=== PATIENT | female | born 1950 | race Caucasian/White ===

== ENCOUNTER 2016-10-08 11:12 | Inpatient (IN) | payer MEDICARE, BC ==
[~2016-10-08] VITALS: Ht 165.1 cm; Wt 67.1 kg
[2016-10-08] MEDS ORDERED: PROPOFOL 20 ML IV ONE (11:17)
[2016-10-08] MEDS ORDERED: IV NS 0.9% 1,000 ML ONE (11:17)
[2016-10-08] MEDS ORDERED: IV SET PRIMARY 1 EA INFUS.SET MC ONE (11:17)
--- NOTE | 2016-10-08 11:17 | NUR ---
PT BIB RA S/P GLF WITH VISIBLE DEFORMITY TO R ANKLE AND AIR SPLINT IN PLACE. R PEDAL PULSE PALPABLE AND CAP REFILL WNL BUT TOES ARE COOL TO THE TOUCH. C/O 7/10 PAIN S/P MORPHINE IV CUSTOMER CONTACT SPECIALIST. NO OTHER COMPLAINTS. RESP EVEN UNLABORED. IN ER BED 03.
[2016-10-08] MEDS ORDERED: HYDROMORPHONE 1 MG/1 ML DISP.SYRIN ONE ×2 (11:24→12:03)
[2016-10-08] MEDS ORDERED: ONDANSETRON HCL/PF 4 MG/2 ML VIAL ONE (11:29)
[2016-10-08] MEDS ORDERED: HYDROMORPHONE MDV 0.5 MG in IV D5W 50 ML IV PRN (11:30)
[2016-10-08] MEDS ORDERED: ONDANSETRON HCL/PF - ER 4 MG/2 ML VIAL IV ONE (11:30)
[2016-10-08] MEDS ORDERED: HYDROMORPHONE 1 MG/1 ML DISP.SYRIN IV ONE ×2 (11:30→12:30)
--- NOTE | 2016-10-08 11:46 | NUR ---
MODERATE SEDATION PROCEDURE STARTED AT 1136, REDUCTION AND SPLINTING COMPLETED AT 1141, AND PT RETURNED TO BASELINE FROM SEDATION AT 1146. DR MILLS ADMINISTERED 65MG PROPOFOL VIA LH 18G AT START OF PROCEDURE. XRAY AT BEDSIDE CURRENTLY FOR POST-REDUCTION FILMS. VSS, SATURATING WNL ON 3L VIA NC. FAMILY AT BEDSIDE.
--- NOTE | 2016-10-08 11:52 | NUR ---
ATTEMPTED TO CALL RESOLUTION REP FOR BED - RECEIVED NO RESPONSE
--- NOTE | 2016-10-08 11:54 | NUR ---
PAGED PHARMACEUTICAL PROCESS ENGINEER ORTHO DR KUMARI
--- NOTE | 2016-10-08 11:59 | NUR ---
PAGED CONSULTING SOLUTION DIRECTOR FOR [facility] DR JOSÉ WILLS
[2016-10-08] MEDS ORDERED: MAG HYDROX/AL HYDROX/SIMETH 30 ML UDC PO PRN (12:00)
[2016-10-08] MEDS ORDERED: PROPOFOL 200 MG/20 ML VIAL IV ONE (12:00)
[2016-10-08] MEDS ORDERED: MORPHINE SULFATE INJ 2 MG/ML DISP.SYRIN IV PRN (12:00)
[2016-10-08] MEDS ORDERED: ACETAMINOPHEN 325 MG TABLET PO PRN (12:00)
[2016-10-08] MEDS ORDERED: Z GUARD REMEDY 2 OZ OINT TP PRN (12:00)
--- NOTE | 2016-10-08 12:02 | NUR ---
TRIED AGAIN FOR NURSING RECOOPERER - NO RESPONSE
--- NOTE | 2016-10-08 12:08 | NUR ---
PATIENTS PRIMARY PHYSICIAN IS DR MARINE TURNER [phone]
--- NOTE | 2016-10-08 12:10 | NUR ---
TRIED REACHING NURSING SUP AGAIN FOR MED SURG BED
--- NOTE | 2016-10-08 12:14 | NUR ---
REACHED NURSING SUP WHO INFORMED ME THAT CHARGE NURSE IS CURRENTLY SPEAKING TO HER ABOUT BED ASSIGNMENT
[2016-10-08 12:16] LABS: BASOPHILS % (AUTO) 0.3 % (0.0-2.0); EOSINOPHILS # (AUTO) 0.1 /CMM (0.0-0.7); HEMATOCRIT 42 % (33-45); HEMOGLOBIN 13.7 g/dL (11.5-14.8); LYMPHOCYTES # (AUTO) 1.8 /CMM (0.8-4.8); LYMPHOCYTES % (AUTO) 17.4 % (20.0-44.0); MEAN CORPUSCULAR HEMOGLOBIN 26 PG (26.0-33.0); MEAN CORPUSCULAR HGB CONC 33 g/dl (31.0-36.0); MEAN CORPUSCULAR VOLUME 80 fL (82-100); MONOCYTES # (AUTO) 0.4 /CMM (0.1-1.30); NEUTROPHILS # (AUTO) 8.1 /CMM (1.8-8.9); NEUTROPHILS % (AUTO) 77.3 % (43.0-81.0); PLATELET COUNT (AUTO) 375 /CMM (150-450); RDW COEFFICIENT OF VARIATION 13.4 (11.5-15.0); RED BLOOD CELL COUNT(AUTO) 5.25 MIL/uL (4.0-5.2); WHITE BLOOD COUNT (AUTO) 10.4 K/uL (4.3-11.0)
[2016-10-08] MEDS ORDERED: ATOR20TA PO (12:20)
[2016-10-08] MEDS ORDERED: AMLO10TA4 PO (12:20)
[2016-10-08] MEDS ORDERED: SERT100T PO (12:20)
[2016-10-08] MEDS ORDERED: PANT40TA2 PO (12:20)
--- NOTE | 2016-10-08 12:23 | NUR ---
ROOM ASSIGNMENT 319, KEVIN ORTIZ
[2016-10-08 12:26] LABS: CREATININE 0.7 mg/dL (0.6-1.3); POTASSIUM 3.8 mmol/L (3.5-5.1)
--- NOTE | 2016-10-08 12:26 | NUR ---
REPAGED DR KUMAR CONFORMAL PAD FORMER FOR EPIC
[2016-10-08 12:31] LABS: INR 0.97 (0.87-1.13); PROTHROMBIN TIME 10.1 SECS (9.5-12.7)
--- NOTE | 2016-10-08 12:34 | NUR ---
REPORT GIVEN TO DIANA BROWN FOR ADMISSION
--- NOTE | 2016-10-08 12:36 | NUR ---
PT RESTING QUIETLY IN BED, NAD NOTED. VSS. ALL NEEDS ATTENDED TO.
--- NOTE | 2016-10-08 12:48 | NUR ---
REPAGED DR KUMAR AND MESSAGE WAS LEFT FOR HER BY PANEL
--- NOTE | 2016-10-08 12:58 | NUR ---
PAGED DR BONE FOR ADMISSION
--- NOTE | 2016-10-08 13:01 | NUR ---
DR MILLS ON THE PHONE WITH DR KUMAR
--- NOTE | 2016-10-08 13:40 | NUR ---
PT TRANSPORTED TO 319 IN STABLE CONDITION
--- NOTE | 2016-10-08 14:00 | NUR ---
MS DIECAST MACHINE OPERATOR 66 YEARS OLD FEMALE ADMITTED FROM HOME, BROUGHT IT FROM ER. DX OF ANKLE FRACTURE, PATIENT IS A/O X4. MADE COMFORTABLE IN BED, ON OXYGEN AT 2L/MIN VIA NC, NO SOB NOTED. RIGHT LEG WITH DRESSING, SPLINT IN PLACE. CALL LIGHT WITHIN REACH. WILL CONT TO MONITOR.
[2016-10-08 14:08] VITALS: BP 122/83
--- NOTE | 2016-10-08 14:30 | NUR ---
IV IN LEFT HAND G18. SKIN INTACT. PROVIDED PATIENT A BEDPAN, HAD BOWEL MOVEMENT TODAY, NO C/O CONSTIPATION.
--- NOTE | 2016-10-08 14:31 | NUR ---
PATIENT IS SEEN BY DR. JOSÉ VALDEZ TODAY, MD SPOKE TO THE PATIENT AND FAMILY. DR. KUMAR ORDERED TO CHANGE MORPHINE SULFATE 2MG IV TO Q2HR PRN, PLACE PATIENT ON CARDIAC DIET, PATIENT WILL BE NPO MIDNIGHT NOTED AND ACKNOWLEDGED.
[2016-10-08] MEDS ORDERED: IV SET PRIMARY PUMP SET 1 EA INFUS.SET MC ONE (15:13)
[2016-10-08] MEDS: SERTRALINE HCL 50 MG TABLET PO SCH (15:14)
[2016-10-08] MEDS: ATORVASTATIN 10 MG TABLET PO SCH (15:15)
[2016-10-08] MEDS: MORPHINE SULFATE INJ 2 MG/ML DISP.SYRIN IV PRN ×3 (15:19→20:47)
[2016-10-08] MEDS: IV D5/ 0.9% NACL 1,000 ML IV PRN (15:24)
--- NOTE | 2016-10-08 15:32 | NUR ---
ZOLOFT, LIPITOR NON ADMINISTERED, PATIENT STATED SHE TOOK IT THIS MORNING ALREADY.
[2016-10-08 16:00] VITALS: BP 131/79
--- NOTE | 2016-10-08 16:00 | NUR ---
DEMPSEY CATH INSERTED, URINE DRAINING FREELY. PATIENT TOLERATED WELL.
[2016-10-08] MEDS: HYDROCODONE/APAP 10/325MG 1 EA TABLET PO PRN (16:15)
--- NOTE | 2016-10-08 16:30 | NUR ---
left message for dr. Mckinney supervisor carbon paper coating line to conform surgery date and time.
--- NOTE | 2016-10-08 16:40 | NUR ---
received call form stating that he is not sure if he will be able to perform surgery tomorrow, however to keep pt npo from midnight and he will try to schedule pt for surgery for tomorrow afternoon, will inform pt and family.
--- NOTE | 2016-10-08 18:59 | NUR ---
MS RN CLOSING NOTES PATIENT IN BED, NOT IN DISTRESS. IV IN LEFT HAND G18 PATENT AND INTACT, IV D5 NS INFUSING AT 80ML/HR. PATIENT WILL BE NPO ORDERED FOR PROCEDURE SURGERY, AWAITING FOR DR. KUMARI FOR SCHEDULE PER SASCHA/RN. PATIENT WAS INFORMED. DEMPSEY CATH INTACT, DRAINING TO GRAVITY, URINE CLEAR AND YELLOW. CALL LIGHT WITHIN REACH. WILL ENDORSE TO REHABILITATION THERAPY TECHNICIAN RN FOR CONTINUITY OF CARE.
[2016-10-08 19:00] VITALS: BP 127/80
[2016-10-08] MEDS: HYDROCODONE/APAP 5/325MG 1 EACH TABLET PO PRN (19:19)
--- NOTE | 2016-10-08 19:20 | NUR ---
RN NOTE RECEIVED REPORT. PT AAOX4, NO S/S OF RESPIRATORY DISTRESS, 2L O2 NC. C/O OF PAIN IN RIGHT LEG, NORCO PRN JUST GIVEN. R LEG DRESSING INTACT WITH SPLINT. L HAND IV INTATCT AND PATENT TOLERATING FLUIDS WELL. NPO AT FL FOR POSSIBLE SURGERY IN AFTERNOON WITH DR KUMARI. CALL LIGHT IN REACH, WILL CONT TO MONITOR.
--- NOTE | 2016-10-08 19:20 | NUR ---
PATIENT C/O RIGHT ANKLE PAIN 5/10. GIVEN NORCO 5/325MG PO PRN, ENDORSED TO SOLAR PHOTOVOLTAIC ELECTRICIAN RN TO REASSESS.
--- NOTE | 2016-10-08 20:15 | NUR ---
RN NOTE DILAUDID PT C/O 10/10 IN IN RIGHT LEG, PREVIOUS PRN MORPHINE NOT EFFECTIVE. DR IRWIN AWARE, ORDERED PRN DILAUDID 1MG Q2HRS FOR PAIN. PER MD, OKAY TO GIVE FIRST DOSE NOW
[2016-10-08] MEDS: ENOXAPARIN SODIUM 40 MG/0.4 ML DISP.SYRIN SQ SCH (21:00)
[2016-10-08] MEDS ORDERED: ZOLPIDEM TARTRATE 5 MG TABLET PO PRN (22:00)
--- NOTE | 2016-10-08 22:29 | NUR ---
RN NOTE BP 133/86, 80. FIRST DOSE PRN DILAUDID GIVEN. WILL MONITOR FOR EFFECTIVENESS.
[2016-10-08] MEDS ORDERED: HYDROMORPHONE 1 MG/1 ML DISP.SYRIN IV PRN (22:30)
[2016-10-09] MEDS ORDERED: HYDROMORPHONE 1 MG/1 ML DISP.SYRIN ONE (02:09)
[2016-10-09] MEDS: ONDANSETRON HCL/PF 4 MG/2 ML VIAL IVP PRN (02:35)
[2016-10-09] MEDS: HYDROMORPHONE 1 MG/1 ML DISP.SYRIN IV PRN ×7 (03:31→20:14)
[2016-10-09] MEDS: IV D5/ 0.9% NACL 1,000 ML IV PRN ×2 (03:40→16:48)
--- NOTE | 2016-10-09 06:31 | NUR ---
RN NOTE NO SIGNIFICANT CHANGES THIS SHIFT. PAIN MANAGEMENT EFFECTIVE WITH PRN DILAUDID. NO C/O PAIN OR DISCOMFORT AT THIS TIME. ON MASK @ 6L, BREATHING NON-LABORED AND EVEN. SATTING AT 94%. L WRIST IV INTACT AND PATENT, TOLERATING FLUIDS WELL. NPO STATUS SINCE 0000, FOR POSSIBLE SURGERY WITH DR KUMARI TODAY. R FOOT DRESSING INTACT. ALL NEEDS ATTENDED TO, WILL F/U WITH DAY SHIFT FOR DARIUS.
[2016-10-09 06:46] LABS: BASOPHILS % (AUTO) 0.2 % (0.0-2.0); EOSINOPHILS % (AUTO) 0.3 % (0.0-6.0); HEMATOCRIT 39 % (33-45); HEMOGLOBIN 12.9 g/dL (11.5-14.8); LYMPHOCYTES # (AUTO) 1.9 /CMM (0.8-4.8); LYMPHOCYTES % (AUTO) 17.9 % (20.0-44.0); MEAN CORPUSCULAR HEMOGLOBIN 27 PG (26.0-33.0); MEAN CORPUSCULAR HGB CONC 33 g/dl (31.0-36.0); MEAN CORPUSCULAR VOLUME 81 fL (82-100); MONOCYTES # (AUTO) 0.6 /CMM (0.1-1.30); MONOCYTES % (AUTO) 5.9 % (2.0-12.0); NEUTROPHILS # (AUTO) 8.1 /CMM (1.8-8.9); NEUTROPHILS % (AUTO) 75.7 % (43.0-81.0); PLATELET COUNT (AUTO) 341 /CMM (150-450); RDW COEFFICIENT OF VARIATION 14.7 (11.5-15.0); RED BLOOD CELL COUNT(AUTO) 4.81 MIL/uL (4.0-5.2); WHITE BLOOD COUNT (AUTO) 10.7 K/uL (4.3-11.0)
[2016-10-09 07:04] LABS: CALCIUM, SERUM 8.9 mg/dL (8.5-10.1); CREATININE 0.6 mg/dL (0.6-1.3); MAGNESIUM 1.9 mg/dL (1.8-2.4); PHOSPHORUS 3.3 mg/dL (2.5-4.9); POTASSIUM 4.1 mmol/L (3.5-5.1)
--- NOTE | 2016-10-09 07:15 | NUR ---
MS RN NOTES RECEIVED PATIENT IN BED, AWAKE, A/O X4. ON OXYGEN AT 5L/MIN VIA NC, BREATHING NON LABORED. PER NIGHT RN PATIENT HAD EPISODE OF DECREASE O2 SAT LAST NIGHT AND WAS PLACE ON SIMPLE MASK AT 6L O2. PATIENT APPEARS COMFORTABLE IN BED, RIGHT LEG ELEVATED WITH PILLOW. PATIENT IS ON NPO STATUS ORDERED, POSSIBLE SURGERY TODAY BY DR. KUMARI. CALL LIGHT WITHIN REACH. WILL CONT TO MONITOR.
[2016-10-09] MEDS: PANTOPRAZOLE 40 MG TABLET.DR PO SCH (07:30)
[2016-10-09 07:49] LABS: THYROID STIMULATING HORMONE 1.236 uIU/mL (0.358-3.74)
[2016-10-09 08:00] VITALS: BP 124/81
[2016-10-09] MEDS ORDERED: PANTOPRAZOLE 40 MG TABLET.DR PO SCH (09:00)
[2016-10-09] MEDS: SERTRALINE HCL 50 MG TABLET PO SCH (09:00)
[2016-10-09] MEDS ORDERED: AMLODIPINE BESYLATE 10 MG TABLET PO SCH (09:00)
[2016-10-09] MEDS: ATORVASTATIN 10 MG TABLET PO SCH ×2 (09:00→22:09)
--- NOTE | 2016-10-09 09:12 | NUR ---
PATIENT IS SEEN BY DR. JOSÉ WILLS TODAY. AWAITING FOR SURGERY TODAY.
--- NOTE | 2016-10-09 13:41 | NUR ---
PATIENT IS SEEN BY TERESA/PA SPOKE TO THE PATIENT AND FAMILY MEMBER. PATIENT WILL BE NPO TONIGHT AFTER 11PM, FOR SURGERY-ORIF RIGHT ANKLE TOMORROW. CHARGE NURSE IS AWARE.
[2016-10-09] MEDS: HYDROCODONE/APAP 10/325MG 1 EA TABLET PO PRN ×3 (13:55→23:08)
[2016-10-09] MEDS: DOCUSATE SODIUM 250 MG CAPSULE PO SCH ×2 (14:58→21:00)
[2016-10-09] MEDS: AMLODIPINE BESYLATE 10 MG TABLET PO SCH (14:58)
[2016-10-09 16:00] VITALS: BP 138/78
[2016-10-09] MEDS ORDERED: DOCUSATE SODIUM 250 MG CAPSULE PO SCH (17:00)
--- NOTE | 2016-10-09 18:26 | NUR ---
MS RN CLOSING NOTES PATIENT IN BED, A/O X4. NOT IN DISTRESS. PER PATIENT HER PAIN LEVEL IS CONTROLLED. RIGHT LEG SPLINTED, ELEVATED WITH PILLOWS, WITH GOOD CIRCULATION IN RIGHT FOOT TOES. NWB IN RLE ORDERED. PATIENT WILL BE NPO AFTER 11PM TONIGHT, FOR ORIF RIGHT ANKLE BY DR. KUMARI IN AM. CONSENT SIGNED AND PLACE IN THE CHART. CALL LIGHT WITHIN REACH. WILL ENDORSE TO RING ATTACHER RN FOR CONTINUITY OF CARE.
--- NOTE | 2016-10-09 19:30 | NUR ---
MS/RN OPENING NOTES PT AWAKE, A/OX4, ACCOMPANIED BY FAMILY MEMBER. ON 6LPM O2 VIA NC. BREATHING EVEN AND UNLABORED. DENIES SOB. NO S/S OF DISTRESS NOTED. IV TO RIGHT HAND PATENT AND INTACT RUNNING D5NS @80ML/HR ORDERED. NO S/S OF INFILTRATION NOTED. PAIN 9/10 TO RIGHT ANKLE, BUT REQUESTING PAIN MEDICATION IN A LITTLE BIT. DEMPSEY IN PLACE, DRAINING WELL. RLE WRAPPED AND ELEVATED WITH PILLOWS. PT AWARE OF NPO STATUS POST 11PM TONIGHT FOR SURGERY TOMORROW MORNING WITH DR. KUMARI. CONSENTS SIGNED AND FLAGGED IN THE CHART. WILL UPDATE SURGICAL CHECKLIST. BED IN LOW/LOCKED POSITION, CALL LIGHT IN REACH. BED RAILS UPX2. WILL CONTINUE TO MONITOR
[2016-10-09 20:00] VITALS: BP 129/79
--- NOTE | 2016-10-09 20:23 | NUR ---
MS/RN NOTES PT REQUESTED MEDICATION FOR 9/10 RIGHT ANKLE PAIN. PRE-OXYGENATED PT WITH SIMPLE MASK AND INCREASED O2 TO 7LPM DUE TO HER O2 SAT BEING 90%. EH=951/79, HR=79. PT STATES SHE IS A LITTLE NERVOUS FOR PROCEDURE TOMORROW. ENCOURAGED PT TO TAKE SLOW CONTROLLED DEEP BREATHS AND LEAVE SIMPLE MASK ON FOR AT LEAST 45 MINUTES POST ADMINISTRATION OF IV DILAUDID. WILL CONTINUE TO MONITOR
[2016-10-09] MEDS: ENOXAPARIN SODIUM 40 MG/0.4 ML DISP.SYRIN SQ SCH (21:00)
[2016-10-10] MEDS: HYDROMORPHONE 1 MG/1 ML DISP.SYRIN IV PRN ×6 (01:44→21:05)
--- NOTE | 2016-10-10 05:30 | NUR ---
MS/RN NOTES CALLED DR. JI'S OFFICE TO INFORM HIM OF PT'S CONDITION AND THAT DR. IRWIN POSTPONED THE SCHEDULED [address] JI SAID HE WOULD INFORM DR. KUMARI. BEER BREWER LEMUEL NOTIFIED AND RELAYED INFORMATION TO NURSING SENSOR TECHNICIAN. FAMILY NOTIFIED WELL.
[2016-10-10] MEDS: IV D5/ 0.9% NACL 1,000 ML IV PRN (05:31)
--- NOTE | 2016-10-10 05:35 | NUR ---
MS/RN NOTES AM VITALS TAKEN PRIOR TO SURGERY. O2 SAT NOTED TO BE 85%. INCREASED O2 TO 10LPM VIA SIMPLE MASK. PT NOTED TO BE A LITTLE ANXIOUS AND SOB AT THIS TIME. ENCOURAGED PT TO TAKE SLOW DEEP BREATHS. WORKERS COMPENSATION CLAIMS ADJUSTER LEMUEL NOTIFIED. SPOKE TO DR IRWIN AND ORDERED STAT ABG, CHEST XRAY, 40MG LASIX IV ONCE AND HOLD FLUIDS. WILL ENTER AND CARRY OUT ORDERS APPROPRIATELY.
[2016-10-10] MEDS ORDERED: FUROSEMIDE 40 MG/4 ML VIAL ONE (05:55)
[2016-10-10] MEDS ORDERED: FUROSEMIDE 40 MG/4 ML VIAL IV SCH (06:00)
[2016-10-10] MEDS ORDERED: FUROSEMIDE 40 MG/4 ML VIAL IV ONE (06:00)
--- NOTE | 2016-10-10 07:30 | NUR ---
MS/RN CLOSING NOTES PT AWAKE, A/OX3, ON 10LPM SIMPLE MASK, SATTING 90-92%. STAT CXR, ABG AND ONE TIME DOSE OF LASIX 40MG ADMINISTERED. IV TO RIGHT HAND PATENT AND INTACT. IVF STOPPED PER MD IRWIN ORDER. PT COMPLAINING OF PAIN TO HER RIGHT ANKLE. SCHEDULED ORIF SURGERY POSTPONED. BREATHING IS EVEN AND UNLABORED AT THIS TIME. DENIES ANXIETY OR SOB. FAMILY MENTIONED THAT SHE MAY HAVE SLEEP APNEA (NOT DIAGNOSED) AND HAS HAD A PREVIOUS EXPERIENCE WHERE SHE HAD A DIFFICULT TIME WAKING UP FROM SURGERY. BED IN LOW/LOCKED POSITION, CALL LIGHT IN REACH. BED RAILS UPX2. FAMILY REMAINS AT BEDSIDE. ENDORSED TO AM SHIFT DARIUS.
[2016-10-10 07:47] LABS: ABG OXYGEN SATURATION 89.2 % (92.0-98.5); ABG PCO2 49.2 mmHg (35.0-45.0); ABG PH 7.436 (7.350-7.450); ABG PO2 52.7 mmHg (75.0-100.0); ABG TOTAL HEMOGLOBIN 13.1 G/dL (12.0-16.0); AaDO2 212.2 mmHg; COHb 1.2 % (0.5-1.5); MetHb 0.5 % (0.0-1.5); O2Hb 87.7 % (94.0-97.0); SITE, ABG Right Brachial; VENT MODE, BG SIMPLE MASK
[2016-10-10 08:00] VITALS: BP_SYST 111; BP_SYST 112; BP_DIAS 71
--- NOTE | 2016-10-10 08:00 | NUR ---
MS RN NOTE PT AWAKE, ALERT AND ORIENTED X4. COMPLAINTS OF RT ANKLE PAIN AND SOB. PT. HAD O2@10L VIA MASK. ABG DONE. AWAITING A RESULTS. CALL LIGHT WITHIN REACH. SIDE RAILS UP. MONITOR CLOSELY.
[2016-10-10 08:02] LABS: BASOPHILS % (AUTO) 0.3 % (0.0-2.0); EOSINOPHILS # (AUTO) 0.1 /CMM (0.0-0.7); EOSINOPHILS % (AUTO) 0.7 % (0.0-6.0); HEMATOCRIT 39 % (33-45); HEMOGLOBIN 12.6 g/dL (11.5-14.8); LYMPHOCYTES # (AUTO) 1.5 /CMM (0.8-4.8); LYMPHOCYTES % (AUTO) 13.5 % (20.0-44.0); MEAN CORPUSCULAR HEMOGLOBIN 26 PG (26.0-33.0); MEAN CORPUSCULAR HGB CONC 32 g/dl (31.0-36.0); MEAN CORPUSCULAR VOLUME 81 fL (82-100); MONOCYTES # (AUTO) 0.4 /CMM (0.1-1.30); MONOCYTES % (AUTO) 3.7 % (2.0-12.0); NEUTROPHILS # (AUTO) 8.8 /CMM (1.8-8.9); NEUTROPHILS % (AUTO) 81.8 % (43.0-81.0); PLATELET COUNT (AUTO) 335 /CMM (150-450); RDW COEFFICIENT OF VARIATION 14.7 (11.5-15.0); RED BLOOD CELL COUNT(AUTO) 4.78 MIL/uL (4.0-5.2); WHITE BLOOD COUNT (AUTO) 10.8 K/uL (4.3-11.0)
[2016-10-10 08:23] LABS: CALCIUM, SERUM 9.1 mg/dL (8.5-10.1); CREATININE 0.7 mg/dL (0.6-1.3); MAGNESIUM 1.8 mg/dL (1.8-2.4); PHOSPHORUS 2.3 mg/dL (2.5-4.9); POTASSIUM 3.6 mmol/L (3.5-5.1)
--- NOTE | 2016-10-10 08:30 | NUR ---
CHANGED TO NON-REBREATHING MASK. SAO2 @93~96%. NOTIFIED ABG RESULTS TO SARAH BANGURA. CHARGE NURSE PRASANNA SPOKE WITH FAMILY AT THE BEDSIDE.
[2016-10-10] MEDS ORDERED: IOHEXOL-350 100 ML VIAL IV ONE (08:58)
[2016-10-10] MEDS ORDERED: CT SWABBABLE VALVE TRANS SET 1 EA INFUS.SET MC ONE (08:58)
[2016-10-10] MEDS ORDERED: IV NS 0.9% 0 ML IV ONE (08:58)
[2016-10-10] MEDS ORDERED: ALBUTEROL FS 2.5 MG/0.5 ML VIAL.NEB NEB PRN (09:30)
[2016-10-10] MEDS ORDERED: IPRATROPIUM NEB FS 0.5 MG/2.5 ML AMPUL.NEB NEB PRN (09:30)
--- NOTE | 2016-10-10 09:30 | NUR ---
SARAH BANGURA AT THE BEDSIDE. ASSESSED PT AND SPOKE WITH FAMILY. WILL TAKE CT CHEST.
[2016-10-10] MEDS: HYDROCODONE/APAP 10/325MG 1 EA TABLET PO PRN ×2 (10:20→16:58)
--- NOTE | 2016-10-10 11:00 | NUR ---
TOOK AN ECHO AND LLE VENOUS US DONE AT THE BEDSIDE.
[2016-10-10] MEDS ORDERED: SECONDARY IV SET 1 EA INFUS.SET MC ONE (11:07)
[2016-10-10] MEDS: SERTRALINE HCL 50 MG TABLET PO SCH (11:32)
[2016-10-10] MEDS: DOCUSATE SODIUM 250 MG CAPSULE PO SCH ×2 (11:33→16:57)
[2016-10-10] MEDS: PANTOPRAZOLE 40 MG TABLET.DR PO SCH (11:33)
[2016-10-10] MEDS: AMLODIPINE BESYLATE 10 MG TABLET PO SCH (11:33)
[2016-10-10] MEDS: CEFTRIAXONE 1 G in IV D5W 50 ML IV SCH (11:49)
[2016-10-10] MEDS ORDERED: LEVOFLOXACIN 750 MG /D5W 150ML 750 MG in PREMIX 1 EA IV SCH (12:00)
--- NOTE | 2016-10-10 12:00 | NUR ---
STARTED ROCEPHIN VIPB. CHANGED TO SIMPLE MASK @ 10 L. SaO2 90~93%. MORE COMFORTABLE NOW. MONITOR CLOSELY.
--- NOTE | 2016-10-10 12:00 | NUR ---
DR. PERES AT THE BEDSIDE. SPOKE WITH FAMILY AND PT.
[2016-10-10] MEDS: CELECOXIB 100 MG CAPSULE PO SCH ×2 (12:30→21:00)
[2016-10-10] MEDS: ACETAMINOPHEN 325 MG TABLET PO SCH ×2 (12:45→17:33)
[2016-10-10] MEDS: GUAIFENESIN LA 600 MG TABLET.SA PO SCH ×2 (15:00→21:00)
[2016-10-10 16:00] VITALS: BP 131/78
[2016-10-10] MEDS ORDERED: K PHOS NEUTRAL 250 MG TABLET PO ONE (16:30)
--- NOTE | 2016-10-10 18:41 | NUR ---
CLOSING SHIFT PT. AWAKE, ALERT AND ORIENTED X4. RT ANKLE PAIN HAS BEEN CONTROLLED BY PAIN MEDS. SAO2 90~96% ON NRB MASK. ENCOURAGED INCENTIVE SPIROMETER AND DEEP BREATHING. VS STABLE. RT DORSAL PULSE IS STRONG. ELEVATED RT LEG. POOR INTAKE. D5NS@80ML/HR IVF. DEMPSEY CATH IN PLACED. EXPLAINED ALL TREATMENT TO DECREASE ANXIOUS. CALL LIGHT WITHIN REACH. SIDE RAILS UP. MONITOR CLOSELY.
--- NOTE | 2016-10-10 19:30 | NUR ---
RN NOTE; RECEIVED PT AWAKE AND ALERT IN BED. SOME HOW ANXIOUS AND RESTLESS. ON REBREATHER MASK W/ O2 @15LPM W/ O2 SAT 86-92%. NO C/O SOB. NO COUGH. DRESSING AND SPLINT ON L FOOT INTACT AND IN PLACE. ASSISTED W/ REPOSITIONING. BED LOW LOCKED. SRX2. CALL LIGHT WITHIN REACH. WILL CONT TO MONITOR
[2016-10-10] MEDS: IPRATROPIUM NEB FS 0.5 MG/2.5 ML AMPUL.NEB NEB SCH (19:59)
[2016-10-10 20:00] VITALS: BP 123/70
[2016-10-10] MEDS: ALBUTEROL FS 2.5 MG/0.5 ML VIAL.NEB NEB SCH ×2 (20:00→21:30)
[2016-10-10] MEDS: ATORVASTATIN 10 MG TABLET PO SCH (21:04)
[2016-10-10] MEDS: ENOXAPARIN SODIUM 40 MG/0.4 ML DISP.SYRIN SQ SCH (21:12)
--- NOTE | 2016-10-10 21:15 | NUR ---
DILAUDID GIVEN FOR C/O SEVERE R FOOT PAIN. PT REFUSED MUCINEX AND CELECOXIB. REMAINED ON O2 AT 15LPM VIA NON REBREATHER MASK AND CONTINUOUS O2 SAT MONITORING. WILL CONT TO MONITOR
--- NOTE | 2016-10-10 23:44 | NUR ---
ON ONGOING MONITORING FOR O2 SAT . W/ O2 SAT OF 89-92% . BREATHING TX GIVEN BY RT. WILL CONT TO MONITOR
[2016-10-11] VITALS (17 sets, daily range): BP systolic 91–139; BP diastolic 42–117
[2016-10-11] MEDS: HYDROCODONE/APAP 10/325MG 1 EA TABLET PO PRN ×3 (01:19→16:25)
--- NOTE | 2016-10-11 01:21 | NUR ---
NORCO 10/325 GIVEN ORDERED PER PT'S REQUEST FOR C/O R FOOT PAIN. WILL CONT TO MONITOR
[2016-10-11] MEDS: TEMAZEPAM 7.5 MG CAPSULE PO PRN (01:50)
--- NOTE | 2016-10-11 01:53 | NUR ---
RESTORIL GIVEN FOR INABILITY TO FALL SLEEP. PT REMAINED ON CONTINUOUS O2 SAT MONITORING W/ O2 SAT OF 90-92% . WILL CONT TO MONITOR CLOSELY.
[2016-10-11] MEDS: ALBUTEROL FS 2.5 MG/0.5 ML VIAL.NEB NEB SCH ×4 (03:30→21:12)
[2016-10-11] MEDS: IPRATROPIUM NEB FS 0.5 MG/2.5 ML AMPUL.NEB NEB SCH ×5 (03:30→21:12)
[2016-10-11] MEDS: HYDROMORPHONE 1 MG/1 ML DISP.SYRIN IV PRN ×6 (05:58→21:19)
[2016-10-11] MEDS: ACETAMINOPHEN 325 MG TABLET PO SCH ×3 (06:00→12:00)
--- NOTE | 2016-10-11 06:00 | NUR ---
DILAUDID GIVEN PER PT'S REQUEST FOR C/O SEVERE T FOOT PAIN. WILL CONT TO MONITOR
--- NOTE | 2016-10-11 06:25 | NUR ---
CALLED RT FOR MISSED BREATHING DOSE OF BREATHING TX. PER RT SOME ONE WILL BE HERE WITH THE PT .
--- NOTE | 2016-10-11 06:34 | NUR ---
SPOKE TO DR. REYNA OVER THE PHONE AND RELAYED PT'S RESPIRATORY CONDITION W/ NNO AT THIS TIME . AND TO CONT MONITORING PT CLOSELY.
--- NOTE | 2016-10-11 06:50 | NUR ---
RN NOTE; PT IN BED DOZING INTERMITTENTLY. BREATHING VIA NON REBREATHER MASK ON 15LPM. O2 SAT REMAINED 89-92%. W/ EPISODES OF COUGH. F/C IN PLACE. DRAINING CLEAR YELLOW URINE. NO C/O PAIN AT THIS TIME. DRESSING AND SPLINT IN PLACE ON R ANKLE. NEEDS ATTENDED. BED BATH GIVEN. CALL LIGHT WITHIN REACH. WILL CONT TO MONITOR AND WILL ENDORSE TO AM SHIFT FOR DARIUS.
--- NOTE | 2016-10-11 07:00 | NUR ---
MS RN INITIAL NOTES REPORT RECEIVED AT THE BEDSIDE. PATIENT IS RESTING COMFORTABLY IN BED. NO SOB OR DISTRESS NOTED AT THIS TIME. PATIENT IS ON A NONREBREATHER MASK AT 15L. O2 SAT IS 91%. PATIENT REPORTS TOLERABLE PAIN AT THIS TIME. BED IN A LOW POSITION, CALL LIGHT WITHIN PATIENT REACH. WILL CONTINUE TO MONITOR.
[2016-10-11 07:22] LABS: CALCIUM, SERUM 8.7 mg/dL (8.5-10.1); CREATININE 0.5 mg/dL (0.6-1.3); MAGNESIUM 1.9 mg/dL (1.8-2.4); PHOSPHORUS 3.6 mg/dL (2.5-4.9); POTASSIUM 3.5 mmol/L (3.5-5.1)
[2016-10-11 07:31] LABS: BASOPHILS % (AUTO) 0.3 % (0.0-2.0); EOSINOPHILS # (AUTO) 0.2 /CMM (0.0-0.7); EOSINOPHILS % (AUTO) 2.1 % (0.0-6.0); HEMATOCRIT 34 % (33-45); HEMOGLOBIN 11.3 g/dL (11.5-14.8); LYMPHOCYTES % (AUTO) 23.7 % (20.0-44.0); MEAN CORPUSCULAR HEMOGLOBIN 27 PG (26.0-33.0); MEAN CORPUSCULAR HGB CONC 33 g/dl (31.0-36.0); MEAN CORPUSCULAR VOLUME 81 fL (82-100); MONOCYTES # (AUTO) 0.5 /CMM (0.1-1.30); MONOCYTES % (AUTO) 5.7 % (2.0-12.0); NEUTROPHILS # (AUTO) 5.7 /CMM (1.8-8.9); NEUTROPHILS % (AUTO) 68.2 % (43.0-81.0); PLATELET COUNT (AUTO) 289 /CMM (150-450); RDW COEFFICIENT OF VARIATION 14.1 (11.5-15.0); RED BLOOD CELL COUNT(AUTO) 4.25 MIL/uL (4.0-5.2); WHITE BLOOD COUNT (AUTO) 8.3 K/uL (4.3-11.0)
[2016-10-11] MEDS: CELECOXIB 100 MG CAPSULE PO SCH ×2 (08:19→21:05)
[2016-10-11] MEDS: GUAIFENESIN LA 600 MG TABLET.SA PO SCH ×2 (08:19→21:05)
[2016-10-11] MEDS: PANTOPRAZOLE 40 MG TABLET.DR PO SCH (08:19)
[2016-10-11] MEDS: DOCUSATE SODIUM 250 MG CAPSULE PO SCH ×2 (08:19→16:26)
[2016-10-11] MEDS: AMLODIPINE BESYLATE 10 MG TABLET PO SCH (08:20)
[2016-10-11] MEDS: SERTRALINE HCL 50 MG TABLET PO SCH (08:20)
--- NOTE | 2016-10-11 08:51 | NUR ---
PM MEDICATIONS NOT MARKED ADMINISTERED.
--- NOTE | 2016-10-11 09:46 | NUR ---
MS RN NOTES SPOKE TO SARAH MONROE AND DR CHAVEZ. BOTH AGREE TO AN ICU TRANSFER FOR CLOSER PATIENT MONITORING. FAMILY IS AT THE BEDSIDE AND AWARE OF THE PENDING TRANSFER. ANGELIQUE, MOTOR POWER CONNECTOR, WAITING FOR A BED IN ICU.
--- NOTE | 2016-10-11 10:24 | NUR ---
MS RN NOTES PATIENT TRANSFERRED TO ICU. NO SOB OR DISTRESS. PATIENT TOLERATED WELL. REPORT GIVEN TO BROOKS AT THE BEDSIDE.
--- NOTE | 2016-10-11 10:30 | NUR ---
FILLER PICKER NOTE: RECEIVED PATIENT ALERT AND ORIENTED X3 ON 15L O2 VIA NONREBREATHER WITH NOTED WORK OF BREATHING, TACHYPNEIC AND RESTLESS. SR ON TELE MONITOR. PATIENT NOTED WITH RHAND 22G RUNNING D5NS AT 80ML/HR. DEMPSEY CATHETER DRAINING TO GRAVITY. PATIENT PLACED ON MONITOR, ORIENTED TO ROOM AND UNIT. TURNED AND REPOSITIONED AND MADE COMFORTABLE. ON LOW AIRLOSS MATTRESS. RIGHT ANKLE FRACTURE NOTED WITH ORDERS FOR NWB ON RLE. DRESSING CLEAN DRY AND INTACT. FAMILY ORIENTED TO UNIT. SAFETY MEASURES OBSERVED. CALL LIGHT PLACED WITHIN REACH. ONGOING MONITORING
[2016-10-11] MEDS: CEFTRIAXONE 1 G in IV D5W 50 ML IV SCH (12:00)
--- NOTE | 2016-10-11 14:00 | NUR ---
WELL SERVICE PUMP EQUIPMENT OPERATOR NOTE: DR CHAVEZ AT BEDSIDE, RECEIVED ORDER FOR CPT RIGHT AND LEFT LUNG Q6H. RT NOTIFIED. PICC LINE KEVIN MOHR AT BEDSIDE. HAM MIDLINE 18G INSERTED. PATIENT TOLERATED MIDLINE INSERTION WELL. ONGOING MONITORING
--- NOTE | 2016-10-11 15:06 | NUR ---
LATE ENTRY: RT NOTE PATIENT WAS UNABLE TO TOLERATE CPT DUE TO PAIN. A TOTAL OF 5 MINUTES PERFORMED ON LEFT AND RIGHT SIDE PER 'S ORDERS. NURSE NOTIFIED ABOUT PAIN. WE WILL TRY AGAIN ONCE PAIN SUBSIDES.
[2016-10-11] MEDS ORDERED: HYDROMORPHONE 1 MG/1 ML DISP.SYRIN IV PRN (16:00)
--- NOTE | 2016-10-11 16:00 | NUR ---
CUSTOMER EXPERIENCE PROFESSIONAL NOTE: ASSISTANT PRODUCT MANAGER FER BANGURA AT BEDSIDE. INFORMED OF PATIENT'S CONDITION AND ASSISTANT PRODUCT MANAGER DISCUSSING CARE PLAN WITH PATIENT AND FAMILY. RECEIVED ORDER FOR CPT Q6H AND DILAUDID TO BE ADMINISTERED PRIOR TO CPT FOR PAIN MANAGEMENT IN ORDER TO ENSURE TREATMENT. ASSISTANT PRODUCT MANAGER NOTIFIED OF LOW URINE OUTPUT, D5NS INCREASED TO 125ML/HR. ONGOING MONITORING
[2016-10-11] MEDS: IV D5/ 0.9% NACL 1,000 ML IV PRN (16:27)
--- NOTE | 2016-10-11 18:58 | NUR ---
MACHINE ROPE MAKER NOTE: BED BATH GIVEN, PATIENT'S HAIR SHOWERED AND PATIENT KEPT COMFORTABLE. TURNED AND REPOSITIONED AND EXTREMITIES OFFLOADED. PAIN MANAGEMENT PROVIDED. PATIENT ON 15L 02 VIA NON-REBREATHER MASK. PATIENT DESATURATES EASILY WHEN MASK IS REMOVED PATIENT FORGETS SHE NEEDS IT. PER DAUGHTERS SHE IS INCREASINGLY CONFUSED HOWEVER REMAINS ALERT AND ORIENTED X3 UPON CONVERSATION. PLAN OF CARE DISCUSSED. PATIENT WILL RECEIVE BREATHING TREATMENT AT 1930 WITH CPT TREATMENT AND DILAUDID FOR CPT FOR PAIN MANAGEMENT. NO ACUTE DISTRESS NOTED AT THIS TIME. VS STABLE. SAFETY MAINTAINED. DEMPSEY DRAINING TO GRAVITY. HAM MIDLINE RUNNING D5NS AT 125ML/HR. WILL ENDORSE FOR CONTINUITY OF CARE
--- NOTE | 2016-10-11 19:30 | NUR ---
Received patient awake alert and oriented x 3.SR 83 per monitor.Hemodynamically stable. Patient on 100% NRB mask saturation 90%-93%.Patient desat easily to 70's when mask off. Reinforced teaching to kept mask at all times.Encouraged incentive spirometer.HOB elevated. Breath sounds clear on auscultation.Denies pain or sob.FC to gravity draining clear sven urine. Right foot swollen able to wiggle big and 2nd toes,brisk cap refill.Splint & meliza wrap on.Right leg elevated on pillow.Plan of care discussed with patient.Verbalized understood.
--- NOTE | 2016-10-11 20:50 | NUR ---
Patient awake alert and oriented non compliant to treatment.Keep removing NRB mask every 10-15 min. and desat to 68%.Encourage patient to keep NRB mask on but refused.She said she will fasten her bra first.Offered help but refused.straight line edgerWilma notified and tried to talk to patient but patient still refused to have O2 on.RT,Tam notified of breathing treatment.
[2016-10-11] MEDS: ENOXAPARIN SODIUM 40 MG/0.4 ML DISP.SYRIN SQ SCH (21:12)
--- NOTE | 2016-10-11 21:25 | NUR ---
Respiratory treatment and CPT done by Tam NEFF.Patient premedicated with Dilaudid for pain prior to CPT.Patient tolerated procedure well.
--- NOTE | 2016-10-11 21:35 | NUR ---
Patient in room to visit patient.
[2016-10-11] MEDS: TRAZODONE 50 MG TABLET PO SCH (22:03)
[2016-10-11] MEDS: ATORVASTATIN 10 MG TABLET PO SCH (22:03)
--- NOTE | 2016-10-11 22:40 | NUR ---
Patient resting at this time at bedside with daughters Shivani and Katelyn.Daughter Shivani voice concern on patient medication Celebrex.She said it should be taken only as needed as per discussion with MOBILITY DEVELOPER,Effie.But per medication record its given as scheduled Q 12 hrs.Will verify order with MD in am.Made aware of plan of care.Verbalized understanding.
[2016-10-12] VITALS (24 sets, daily range): BP systolic 91–159; BP diastolic 42–99
[2016-10-12] MEDS: TEMAZEPAM 7.5 MG CAPSULE PO PRN (00:36)
[2016-10-12] MEDS: HYDROCODONE/APAP 10/325MG 1 EA TABLET PO PRN ×3 (00:42→13:46)
--- NOTE | 2016-10-12 00:45 | NUR ---
At 0036 Patient complaints of inability to sleep.Restoril given as given as requested. 0042 Patient complaints of right ankle pain 8/10 on pain scale.[place] given as PRN. Continue monitoring.
--- NOTE | 2016-10-12 01:40 | NUR ---
Patient sleeping on rounds.VS stable.
[2016-10-12] MEDS: IV D5/ 0.9% NACL 1,000 ML IV PRN ×3 (02:13→18:45)
[2016-10-12] MEDS: ALBUTEROL FS 2.5 MG/0.5 ML VIAL.NEB NEB SCH ×4 (03:13→22:12)
[2016-10-12] MEDS: IPRATROPIUM NEB FS 0.5 MG/2.5 ML AMPUL.NEB NEB SCH ×4 (03:13→22:12)
--- NOTE | 2016-10-12 03:18 | NUR ---
PT REF BREATHING TX. AT BEDSIDE. RN NOTIFIED. WILL CONTINUE TO MONITOR.
--- NOTE | 2016-10-12 04:00 | NUR ---
Sleeping on rounds.VS stable.No distress noted.
[2016-10-12 04:58] LABS: BASOPHILS % (AUTO) 0.3 % (0.0-2.0); EOSINOPHILS # (AUTO) 0.2 /CMM (0.0-0.7); EOSINOPHILS % (AUTO) 2.2 % (0.0-6.0); HEMATOCRIT 35 % (33-45); HEMOGLOBIN 11.3 g/dL (11.5-14.8); LYMPHOCYTES # (AUTO) 1.6 /CMM (0.8-4.8); MEAN CORPUSCULAR HEMOGLOBIN 27 PG (26.0-33.0); MEAN CORPUSCULAR HGB CONC 33 g/dl (31.0-36.0); MEAN CORPUSCULAR VOLUME 81 fL (82-100); MONOCYTES # (AUTO) 0.5 /CMM (0.1-1.30); MONOCYTES % (AUTO) 5.9 % (2.0-12.0); NEUTROPHILS # (AUTO) 5.5 /CMM (1.8-8.9); NEUTROPHILS % (AUTO) 70.6 % (43.0-81.0); PLATELET COUNT (AUTO) 323 /CMM (150-450); RDW COEFFICIENT OF VARIATION 14.3 (11.5-15.0); RED BLOOD CELL COUNT(AUTO) 4.26 MIL/uL (4.0-5.2); WHITE BLOOD COUNT (AUTO) 7.8 K/uL (4.3-11.0)
--- NOTE | 2016-10-12 05:15 | NUR ---
Patient awake and offered bath but refused at this time.Continue monitoring.
[2016-10-12 05:20] LABS: CREATININE 0.5 mg/dL (0.6-1.3); MAGNESIUM 2.1 mg/dL (1.8-2.4); PHOSPHORUS 3.6 mg/dL (2.5-4.9); POTASSIUM 3.7 mmol/L (3.5-5.1)
--- NOTE | 2016-10-12 06:20 | NUR ---
Patient resting able to sleep for several hours.No further complaints presented.Still desat easily when NRB mask is off.VS stable.SR per monitor.Good urine output.No acute distress noted. Needs attended. stayed over during the night.
[2016-10-12] MEDS: DOCUSATE SODIUM 250 MG CAPSULE PO SCH ×2 (08:03→17:26)
[2016-10-12] MEDS: GUAIFENESIN LA 600 MG TABLET.SA PO SCH ×2 (08:03→20:57)
[2016-10-12] MEDS: PANTOPRAZOLE 40 MG TABLET.DR PO SCH (08:04)
[2016-10-12] MEDS: SERTRALINE HCL 50 MG TABLET PO SCH (08:04)
[2016-10-12] MEDS: CELECOXIB 100 MG CAPSULE PO SCH (08:05)
[2016-10-12] MEDS: AMLODIPINE BESYLATE 10 MG TABLET PO SCH (08:05)
--- NOTE | 2016-10-12 08:09 | NUR ---
INITIAL PROCESS CAMERA OPERATOR NOTE RCVD PT AWAKE AND ALERT SHOWING NO S/O DISTRESS, C/O PAIN TO RIGHT ANKLE/FOOT, PAIN MEDICATION OFFERED. PT WILL THINK ABOUT IT. WILL CONTINUE TO MONITOR. SR ON TELE. NRB MASK IN PLACE WITH GOOD SATURATION. DEMPSEY IN PLACE DRAINING YELLOW URINE. HAM MIDLINE AND LEFT HAND #22 C/D/I/PATENT. NO S/O INFILTRATION OR PHLEBITIS OBSERVED IVF INFUSING. WILL CONTINUE TO MONITOR PT FOR SAFETY AND COMFORT. CALL LIGHT WITHIN REACH. BED IN LOW AND LOCKED POSITION.
[2016-10-12] MEDS: HYDROMORPHONE 1 MG/1 ML DISP.SYRIN IV PRN ×4 (08:25→21:05)
[2016-10-12 09:35] LABS: ABG BASE EXCESS 5.9 mmol/L; ABG OXYGEN SATURATION 88.6 % (92.0-98.5); ABG PCO2 43.1 mmHg (35.0-45.0); ABG PH 7.464 (7.350-7.450); ABG PO2 51.6 mmHg (75.0-100.0); ABG TOTAL HEMOGLOBIN 11.3 G/dL (12.0-16.0); AaDO2 220.2 mmHg; COHb 0.3 % (0.5-1.5); MetHb 0.8 % (0.0-1.5); O2Hb 87.6 % (94.0-97.0); SITE, ABG Right Radial; VENT MODE, BG N/C
[2016-10-12] MEDS: CEFTRIAXONE 1 G in IV D5W 50 ML IV SCH (11:30)
--- NOTE | 2016-10-12 12:15 | NUR ---
SPORTS BOOK SERVER NOTE PT ROUNDS MADE, PT STATES THAT SHE EXPERIENCES 5/10 PAIN BUT DOES NOT REQUIRE PAIN MEDICATION AT THIS TIME. PT'S DAUGHTER AT BEDSIDE. WILL CONTINUE TO MONITOR FOR COMFORT.
--- NOTE | 2016-10-12 16:34 | NUR ---
DIRECT CHILL CASTER NOTE DR. CHAVEZ CLEARING PT FOR SURGERY SPOKE WITH DR. QUOC BRAMBILA TO SCHEDULE SURGERY FOR TOMORROW. PT AND PT'S FAMILY AWARE OF INTUBATION IN ORDER TO PROCEED WITH SURGERY. PT'S DAUGHTER AT BEDSIDE SPOKE WITH DR. CHAVEZ AND GOT QUESTIONS ANSWERED.
[2016-10-12] MEDS: HYDROCODONE/APAP 5/325MG 1 EACH TABLET PO PRN (17:27)
--- NOTE | 2016-10-12 19:20 | NUR ---
ENDING SERVICE DELIVERY SUPERVISOR NOTE PT AWAKE AND ALERT, SR ON TELE. TOLERATING O2 VIA NC. DEMPSEY DRAINING YELLOW URINE. IV SITES C/D/I/PATENT. NO S/O INFILTRATION OR PHLEBITIS OBSERVED IVF INFUSING. CALL LIGHT WITHIN REACH. BED IN LOW AND LOCKED POSITION. PT'S CARE ENDORSED TO WORSTED WINDER PIPE PROCESSOR FOR CONTINUITY OF CARE.
--- NOTE | 2016-10-12 20:40 | NUR ---
ICU/DONOR RELATIONS ASSOCIATE DAUGHTER AT BEDSIDE, ASKED ABOUT SURGERY. GAVE SMALL UPDATE ON ANY INFORMATION THAT I HAD. PT APPEARS CALM WITH DAUGHTER AT BEDSIDE. CALL LIGHT WITHIN REACH.
[2016-10-12] MEDS: TRAZODONE 50 MG TABLET PO SCH (20:56)
[2016-10-12] MEDS: ENOXAPARIN SODIUM 40 MG/0.4 ML DISP.SYRIN SQ SCH (20:57)
[2016-10-12] MEDS: ATORVASTATIN 10 MG TABLET PO SCH (21:03)
--- NOTE | 2016-10-12 21:10 | NUR ---
ICU/TRACK MAINTAINER PT IS GETTING IVP DILAUDID 1MG, FOR CPT. PT WAS ALSO GIVEN PM MEDICATION. CALL LIGHT WITHIN REACH. DENIES ANY SOB.
--- NOTE | 2016-10-12 22:25 | NUR ---
RT LEFT LUNG CPT WAS TOLERATED POORLY PT COMPLAINS OF PAIN. CPT WAS ATTEMPTED BY HAND WITH NO SUCCESS PAIN STILL CONTINUED. RN MADE AWARE.
--- NOTE | 2016-10-12 22:34 | NUR ---
ICU/VETERINARY LABORATORY TECHNICIAN PT COMPLAIN DURING CPT THAT LEFT SIDE PAIN, UNABLE TO TOLERANT THIS. PAIN SUBSIDED AFTER A FEW MINUTES NO SOB SEEN. PT DID TOLERATE THE RIGHT SIDE. PT THEN WENT ON TO HAVE BREATHING TREATMENT. PT HAS CHEST XRAY FOR TOMORROW MORNING. PT CURRENTLY DENIES ANY PAIN. CALL LIGHT WITHIN REACH.
[2016-10-13] VITALS (25 sets, daily range): BP systolic 94–159; BP diastolic 42–96
[2016-10-13] MEDS: IV D5/ 0.9% NACL 1,000 ML IV PRN ×3 (01:00→22:58)
[2016-10-13] MEDS: HYDROMORPHONE 1 MG/1 ML DISP.SYRIN IV PRN ×3 (02:50→16:33)
--- NOTE | 2016-10-13 03:03 | NUR ---
ICU/SHIP WIRER PT IS GETTING IVP DILAUDID 1MG, FOR CPT. PT WAS BEFORE THIS ALSO COMPLAINED ABOUT RIGHT FOOT PAIN 10/. CALL LIGHT WITHIN REACH. DENIES ANY SOB. PT APPEARS COMFORTABLE.
[2016-10-13] MEDS: ALBUTEROL FS 2.5 MG/0.5 ML VIAL.NEB NEB SCH ×4 (03:58→21:09)
[2016-10-13] MEDS: IPRATROPIUM NEB FS 0.5 MG/2.5 ML AMPUL.NEB NEB SCH ×4 (03:58→21:09)
--- NOTE | 2016-10-13 04:28 | NUR ---
ICU/MATERIALS ENGINEERING TECHNICIAN PT COMPLAIN DURING CPT THAT NOW BOTH LEFT AND RIGHT SIDE BOTH HAVE PAIN. UNABLE TO TOLERANT THIS. PAIN SUBSIDED AFTER A FEW MINUTES HOWEVER THERE WAS NO SOB SEEN. PT THEN WENT ON TO HAVE BREATHING TREATMENT. PT HAS CHEST XRAY FOR THIS MORNING. PT CURRENTLY DENIES ANY PAIN. CALL LIGHT WITHIN REACH.
[2016-10-13] MEDS: HYDROCODONE/APAP 5/325MG 1 EACH TABLET PO PRN (04:56)
--- NOTE | 2016-10-13 04:56 | NUR ---
ICU/CAUSTIC PREPARER PT C/O OF PAIN THAT WAS 8/10 TO RIGHT FOOT, GAVE NORCO 5/325 PO. PT WAS REPOSITIONED IN BED REFUSED TO HAVE AM CARE, WANTED TO SLEEP. CALL LIGHT WITHIN REACH. WILL MONITOR PT'S PAIN.
--- NOTE | 2016-10-13 07:54 | NUR ---
INITIAL STRAW HAT PRESSER NOTE RCVD PT AWAKE AND ALERT SHOWING NO S/O DISTRESS OR C/O PAIN AT THIS TIME. SR ON TELE. ON SIMPLE MASK SATURATING 91%. DEMPSEY IN PLACE DRAINING CLEAR, YELLOW URINE. HAM MIDLINE C/D/I/PATENT. NO S/O INFILTRATION OR PHLEBITIS OBSERVED IVF INFUSING. WILL CONTINUE TO MONITOR PT FOR SAFETY AND COMFORT. CALL LIGHT WITHIN REACH. BED IN LOW AND LOCKED POSITION.
[2016-10-13] MEDS: DOCUSATE SODIUM 250 MG CAPSULE PO SCH ×2 (08:00→16:28)
[2016-10-13] MEDS: AMLODIPINE BESYLATE 10 MG TABLET PO SCH (08:00)
[2016-10-13] MEDS: PANTOPRAZOLE 40 MG TABLET.DR PO SCH (08:00)
[2016-10-13] MEDS: SERTRALINE HCL 50 MG TABLET PO SCH (08:00)
[2016-10-13] MEDS: GUAIFENESIN LA 600 MG TABLET.SA PO SCH ×2 (08:00→20:34)
[2016-10-13] MEDS ORDERED: IV SET PRIMARY PUMP SET 1 EA INFUS.SET MC ONE (09:53)
--- NOTE | 2016-10-13 10:13 | NUR ---
PT REFUSES CPT AT THIS TIME. ON N/C 92% SATURATION. PT INSTRUCTED ON DEEP BREATHING AND IS.
[2016-10-13] MEDS: HYDROCODONE/APAP 10/325MG 1 EA TABLET PO PRN ×3 (10:19→20:48)
[2016-10-13] MEDS: CEFTRIAXONE 1 G in IV D5W 50 ML IV SCH (11:45)
--- NOTE | 2016-10-13 15:00 | NUR ---
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 PT REASSURED THAT COUGHING IS BENEFICIAL TO CLEAR SECRETIONS. PT ACKNOWLEDGED. PAIN MANAGED WITH CURRENT ORDERED MEDS. PT STATES THAT IS COMFORTABLE AT THIS TIME. PT'S DAUGHTER AT BEDSIDE. RT SPOKE WITH PT AND PT'S DAUGHTER ABOUT CUPPING. VANVIRAH, RT ATTEMPTED TO PERFORM THERAPY AND PT DIDN'T TOLERATE. PT EDUCATED ON THIS THERAPY BY RT.
--- NOTE | 2016-10-13 19:20 | NUR ---
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 SR ON TELE, TOLERATING O2 VIA NC. DEMPSEY CONTINUES TO DRAIN YELLOW URINE. IV SITES C/D/I/PATENT. NO S/O INFILTRATION OR PHLEBITIS OBSERVED IVF INFUSING. CALL LIGHT WITHIN REACH. BED IN LOW AND LOCKED POSITION. PT'S CARE ENDORSED TO EMPLOYEE RELATIONS REPRESENTATIVE RN FOR CONTINUITY OF CARE.
--- NOTE | 2016-10-13 19:50 | NUR ---
GREASE REMOVER NOTES RECEIVED REPORT FROM ROSALINDA. PATIENT IS ALERT ORIENTED X 4, ON O2 8 LPM VIA NC WITH O2 SAT AT 90% ONLY, RHONCHI ON BILATERAL LUNG BARRIOS, INSTRUCTED TO DEEP BREATH, SPIROMETRY DONE/TRIGGERED COUGHS/PATIENT ABLE TO EXPECTORATE MEDIUM AMOUNT OF THICK TANNED SECRETIONS, SPIROMETRY AND DEEP BREATHING EXERCISES DONE/TOLERATED 5 TIMES, 02 SAT TO 93%, DEMPSEY DRAINING TO LIGHT YELLOW URINE 80 CC. SR ON MONITOR 86, BP 152/83, TEMP 98.4 RR 22. WILL CONTINUE TO MONITOR.
[2016-10-13] MEDS: ENOXAPARIN SODIUM 40 MG/0.4 ML DISP.SYRIN SQ SCH (20:34)
--- NOTE | 2016-10-13 20:51 | NUR ---
BRUSH FINISHER VERBALIZED PAIN ON R ANKLE 01/15, CHECKED CIRCULATION, TOES ARE WARM, PRN 10/325 NORCO GIVEN PER REQUEST AND RATING. O2 SATS DROPS TO 88, ENCOURAGED TO DO DEEP BREATHING/O2 SAT TO 92%, MUCINEX GIVEN FOR COUGH ORDERED, REQUESTED RESPI TREATMENTS NOW, RT INFORMED BY HEADING PINNER [email or web address]. INSTRUCTED TO REPORT ANY SIGNS OF BLEEDING ( ON LOVENOX). FAMILY MEMBER ON BEDSIDE
[2016-10-13] MEDS: TRAZODONE 50 MG TABLET PO SCH (21:37)
[2016-10-13] MEDS: ATORVASTATIN 10 MG TABLET PO SCH (21:37)
[2016-10-13] MEDS ORDERED: TEMAZEPAM 7.5 MG CAPSULE ONE (22:43)
[2016-10-13] MEDS ORDERED: TEMAZEPAM 7.5 MG CAPSULE PO PRN ×2 (23:00)
--- NOTE | 2016-10-13 23:36 | NUR ---
VENEER JOINTER HELPER VERBALIZED INABILITY TO SLEEP AND REQUESTED FOR TEMAZEPAM WHICH SHE IS USED TO TAKING. CALL TO DR REYNA FOR ORDER. ORDER RECEIVED TEMAZEPAM 7.5 MGS HS. MED GIVEN. Addendum: 10/14/16 at 0541 by DERRICK ROCHE RN VENEER JOINTER HELPER SLEPT WELL
[2016-10-14] VITALS (25 sets, daily range): BP systolic 102–160; BP diastolic 35–121
--- NOTE | 2016-10-14 00:46 | NUR ---
BODY FINISHER PATIENT WAS DESATURATING TO 86% WHEN ASLEEP. O2 8LPM NASAL CANNULA CHANGED TO O2 VIA MASK, O2 SAT TO 94%. WILL CONTINUE TO MONITOR Addendum: 10/14/16 at 0244 by DERRICK ROCHE RN BODY FINISHER DESATS, MAINTAINED ON O2 MASK 10 LPM, WAS ABLE TO EXPECTORATE MODERATE THICK MILLER SECRETIONS PAIN RATING 9 ON BACK AND R ANKLE, PRN DILAUDID ADM
[2016-10-14] MEDS: HYDROMORPHONE 1 MG/1 ML DISP.SYRIN IV PRN ×3 (02:32→20:26)
[2016-10-14] MEDS: ALBUTEROL FS 2.5 MG/0.5 ML VIAL.NEB NEB SCH ×4 (02:53→19:50)
[2016-10-14] MEDS: IPRATROPIUM NEB FS 0.5 MG/2.5 ML AMPUL.NEB NEB SCH ×4 (02:53→19:50)
--- NOTE | 2016-10-14 05:46 | NUR ---
BAGGING SALVAGER REFUSED BED BATH
--- NOTE | 2016-10-14 06:57 | NUR ---
ARTS ADMINISTRATOR SLEPT WELL UNTIL 0650, REQUESTED FOR PAIN MED RATING 9 (ANKLE), PRN DILAUDID ADMINISTERED, NOW ON BEDPAN PER REQUEST.
--- NOTE | 2016-10-14 07:30 | NUR ---
ICU/RN: PT RECEIVED SITTING IN BED, ON SIMPLE MASK 6L/MIN, BREATHING EVEN AND UNLABORED, PER PT, DILAUDID DOSE EFFECTIVE IN MANAGING PAIN. PT TURNED AND REPOSITIONED FOR COMFORT. IVF INFUSING WELL. R LOWER EXT CHECKED FOR CIRCULATION, CAP REFILL <3S, ABLE TO MOVE EXTREMITIES. ORIENTED TO POC. VERBALIZED UNDERSTANDING. WILL CONT TO MONITOR PT
[2016-10-14] MEDS: SERTRALINE HCL 50 MG TABLET PO SCH (08:16)
[2016-10-14] MEDS: PANTOPRAZOLE 40 MG TABLET.DR PO SCH (08:16)
[2016-10-14] MEDS: GUAIFENESIN LA 600 MG TABLET.SA PO SCH ×2 (08:16→20:23)
[2016-10-14] MEDS: DOCUSATE SODIUM 250 MG CAPSULE PO SCH ×2 (08:16→16:03)
[2016-10-14] MEDS: AMLODIPINE BESYLATE 10 MG TABLET PO SCH ×3 (08:17→10:04)
--- NOTE | 2016-10-14 08:49 | NUR ---
ICU/RN: PT REFUSED AM NORVASC DOSE; PER PT "MY BLOOD PRESSURE IS BELOW MY USUAL BP BECAUSE OF THE DILAUDID I TOOK THIS AM. MAYBE I'LL TAKE IT LATER." WILL TRY AT LATER TIME.
[2016-10-14] MEDS ORDERED: ACETAMINOPHEN 325 MG TABLET PO PRN (09:30)
--- NOTE | 2016-10-14 10:00 | NUR ---
ICU/RN: PT TURNED AND REPOSITIONED FOR PAIN AND RELIEF AND SKIN PROTECTION, NO S/S SWELLING, INFLAMMATION AROUND IMMOBILIZED AREA, HAS SENSATION ON R TOES. DAUGHTER AT THE BEDSIDE, EXTENSIVELY EDUCATED.
[2016-10-14] MEDS: IV D5/ 0.9% NACL 1,000 ML IV PRN (11:47)
[2016-10-14] MEDS: CEFTRIAXONE 1 G in IV D5W 50 ML IV SCH (11:47)
[2016-10-14] MEDS: HYDROCODONE/APAP 5/325MG 1 EACH TABLET PO PRN (12:43)
[2016-10-14] MEDS: MAGNESIUM HYDROXIDE 30 ML UDC PO PRN ×2 (16:03→18:59)
--- NOTE | 2016-10-14 16:14 | NUR ---
ICU/RN: PT CO CONSTIPATION AND POOR APPETITE FOR "PAST FEW DAYS." PROVIDED PT WITH SEVERAL PRUNE JUICE SERVINGS, ADMINISTERED COLACE, OK TO GIVE MILK OF MAGNESIA NOW PER FER BANGURA NP. PT ENCOURAGED TO INCREASE FLUID INTAKE AND TO TURN AND REPOSITION TOLERATING.
[2016-10-14] MEDS: HYDROCODONE/APAP 10/325MG 1 EA TABLET PO PRN (17:54)
--- NOTE | 2016-10-14 18:59 | NUR ---
ICU/RN: PT REFUSED 1603 MILK OF MAGNESIUM DOSE; NOW REQUESTING MOM. CARE ENDORSED TO PM RN FOR DARIUS.
--- NOTE | 2016-10-14 19:16 | NUR ---
ICU/RN: PT SITTING IN BED A&OX4, WITH PERIODS OF FORGETFULNESS. IVF INFUSING WELL THROUGH HAM ML. FC DRAINING CLEAR YELLOW URINE TO GRAVITY. BREATHING EVEN AND UNLABORED ON O2 5L/MIN VIA NC. CARE ENDORSED TO PM RN FOR DARIUS.
--- NOTE | 2016-10-14 19:45 | NUR ---
ICU/REFUELER RECEIVED REPORT FROM DAY NURSE, PT COMPLAINED ABOUT PAIN TO RIGHT LOWER EXTREMITIES. PT IS CURRENTLY IN N/C WITH SATURATION FROM 92-95%. PT CURRENTLY DENIES ANY, SOB PT APPEARS COMFORTABLE. CALL LIGHT WITHIN REACH.
--- NOTE | 2016-10-14 20:03 | NUR ---
CPT DONE. PT DID NOT TOLERATE IT WELL. PT ASK FOR ME TO STOP.
--- NOTE | 2016-10-14 20:20 | NUR ---
ICU/HUMAN RESOURCES PSYCHOLOGIST PT WAS GETTING CPT, DILAUDID 1MG GIVEN BY CHARGE NURSE FOR THIS. PAIN TO RIGHT FOOT INCREASED TO 9/10. CALL LIGHT WITHIN REACH. PT TOLERATED THE CPT FOR 5-10 MINUTES ONLY. WILL MONITOR.
[2016-10-14] MEDS: ATORVASTATIN 10 MG TABLET PO SCH (20:24)
[2016-10-14] MEDS: ENOXAPARIN SODIUM 40 MG/0.4 ML DISP.SYRIN SQ SCH (20:24)
[2016-10-14] MEDS: TRAZODONE 50 MG TABLET PO SCH (22:59)
--- NOTE | 2016-10-14 23:00 | NUR ---
ICU/METEOROLOGY INSTRUCTOR PT REQUESTED HER 2200 MEDICATION OF DESYREL BE HELD OFF A LITTLE WHILE. DID PT ASKED THEN GAVE THIS @2300. CALL LIGHT WITHIN REACH, NO SOB SEEN. PT APPEARS COMFORTABLE IN ROOM.
--- NOTE | 2016-10-14 23:57 | NUR ---
ICU/MANUFACTURING DIRECTOR PT HAS HISTORY OF SLEEP APNEA, SATS FELL TO 80'S CHANGED OUT N/C FOR MASK AT 6 LITERS SATURATION IS NOW 95. WILL MONITOR THIS.
[2016-10-15] VITALS (26 sets, daily range): BP systolic 99–150; BP diastolic 51–97
[2016-10-15] MEDS: IV D5/ 0.9% NACL 1,000 ML IV PRN ×2 (00:26→16:53)
[2016-10-15] MEDS: ALBUTEROL FS 2.5 MG/0.5 ML VIAL.NEB NEB SCH ×4 (00:55→19:30)
[2016-10-15] MEDS: IPRATROPIUM NEB FS 0.5 MG/2.5 ML AMPUL.NEB NEB SCH ×3 (00:55→19:30)
[2016-10-15] MEDS: HYDROCODONE/APAP 10/325MG 1 EA TABLET PO PRN ×4 (01:19→22:04)
--- NOTE | 2016-10-15 01:30 | NUR ---
ICU/USER INTERFACE DEVELOPER PT COMPLAINED PAIN TO RIGHT LOWER LEG, PAIN RATED 7/10/ NORCO 10/325 GIVEN FOR THIS. CALL LIGHT WITHIN REACH WILL MONITOR PT'S PAIN. PT APPEARS COMFORTABLE. SATURATION IS 94-95%.
[2016-10-15 04:56] LABS: BASOPHILS % (AUTO) 0.4 % (0.0-2.0); EOSINOPHILS # (AUTO) 0.2 /CMM (0.0-0.7); EOSINOPHILS % (AUTO) 2.5 % (0.0-6.0); HEMATOCRIT 33 % (33-45); HEMOGLOBIN 10.7 g/dL (11.5-14.8); LYMPHOCYTES # (AUTO) 1.6 /CMM (0.8-4.8); LYMPHOCYTES % (AUTO) 24.1 % (20.0-44.0); MEAN CORPUSCULAR HEMOGLOBIN 26 PG (26.0-33.0); MEAN CORPUSCULAR HGB CONC 33 g/dl (31.0-36.0); MEAN CORPUSCULAR VOLUME 81 fL (82-100); MONOCYTES # (AUTO) 0.4 /CMM (0.1-1.30); MONOCYTES % (AUTO) 5.5 % (2.0-12.0); NEUTROPHILS # (AUTO) 4.4 /CMM (1.8-8.9); NEUTROPHILS % (AUTO) 67.5 % (43.0-81.0); PLATELET COUNT (AUTO) 311 /CMM (150-450); RDW COEFFICIENT OF VARIATION 14.5 (11.5-15.0); RED BLOOD CELL COUNT(AUTO) 4.05 MIL/uL (4.0-5.2); WHITE BLOOD COUNT (AUTO) 6.5 K/uL (4.3-11.0)
[2016-10-15 05:16] LABS: CALCIUM, SERUM 8.9 mg/dL (8.5-10.1); CREATININE 0.5 mg/dL (0.6-1.3); MAGNESIUM 2.1 mg/dL (1.8-2.4); PHOSPHORUS 3.4 mg/dL (2.5-4.9); POTASSIUM 3.9 mmol/L (3.5-5.1)
[2016-10-15 05:28] LABS: INR 0.94 (0.87-1.13)
[2016-10-15] MEDS: HYDROMORPHONE 1 MG/1 ML DISP.SYRIN IV PRN ×2 (05:31→23:41)
[2016-10-15] MEDS: MAGNESIUM HYDROXIDE 30 ML UDC PO PRN (05:31)
--- NOTE | 2016-10-15 05:51 | NUR ---
ICU/ACQUISITION PROFESSIONAL PT WAS CLEANED UP AND COMPLAINED OF PAIN RATED 9/10 DILAUDID 1MG GIVEN BY CHARGE NURSE FOR THIS. PAIN TO RIGHT FOOT INCREASED TO 9/10. CALL LIGHT WITHIN REACH. PT TOLERATED THE CPT FOR 5-10 MINUTES ONLY. WILL MONITOR.
--- NOTE | 2016-10-15 07:27 | NUR ---
INTELLECTUAL PROPERTY MANAGER NOTE: RECEIVED PATIENT ALERT AND ORIENTED X3, ON 5L 02 VIA NC, NO RESPIRATORY DISTRESS NOTED. BREATHING EVEN AND UNLABORED. SR ON TELE MONITOR 98. PATIENT NOTED WITH HAM MIDLINE RUNNING D5NS AT 75ML/HR. PATIENT NOTED WITH DEMPSEY DRAINING YELLOW URINE TO GRAVITY. S/P FALL AND RIGHT ANKLE FRACTURE, RIGHT LEG NOTED WITH JONATHAN WRAP PERIPHERAL PULSES PRESENT. PATIENT PLACED ON BEDPAN, ALL NEEDS MET, SAFETY MAINTAINED. ONGOING MONITORING.
[2016-10-15] MEDS: PANTOPRAZOLE 40 MG TABLET.DR PO SCH (07:34)
[2016-10-15] MEDS: DOCUSATE SODIUM 250 MG CAPSULE PO SCH ×2 (08:07→16:53)
[2016-10-15] MEDS: SERTRALINE HCL 50 MG TABLET PO SCH (08:08)
[2016-10-15] MEDS: AMLODIPINE BESYLATE 10 MG TABLET PO SCH (08:08)
[2016-10-15] MEDS: GUAIFENESIN LA 600 MG TABLET.SA PO SCH ×2 (08:08→20:33)
[2016-10-15] MEDS ORDERED: BISACODYL SUPP (10 MG) 10 MG/SUPP.RECT SUPP.RECT RC PRN (11:00)
[2016-10-15] MEDS: CEFTRIAXONE 1 G in IV D5W 50 ML IV SCH (11:56)
--- NOTE | 2016-10-15 12:36 | NUR ---
MELTER CLERK NOTE: FER BANGURA WIRER AT BEDSIDE PLACED ORDER FOR RECTAL SUPPOSITORY, MEDICATION ADMINISTERED. PATIENT NOTED WITH SMALL BOWEL MOVEMENT. PATIENT CLEANED AND KEPT CLEAN AND DRY. TURNED AND EXTREMITIES OFFLOADED. PATIENT MADE COMFORTABLE AND NEEDS MET. ONGOING MONITORING.
--- NOTE | 2016-10-15 18:00 | NUR ---
DIRECTOR OF MUSIC THERAPY NOTE: PATIENT RESTING COMFORTABLY IN BED, ON 3L O2 VIA NC SPO2 92%, RESPIRATIONS EVEN AND UNLABORED AND NO DISTRESS NOTED, SR ON MONITOR. TOTAL BED BATH GIVEN. PATIENT NOTED WITH 3 SMALL BM'S. PATIENT TURNED AND REPOSITIONED, AND PAIN MANAGEMENT PROVIDED, PATIENT ENCOURAGE TO UTILIZE GUIDED IMAGERY. ALL MEDS GIVEN AND ALL NEEDS MET. SAFETY MAINTAINED. ONGOING MONITORING
--- NOTE | 2016-10-15 19:39 | NUR ---
EMPLOYEE RELATIONS ADVISOR RCD PT W/DX S/P MECHANICAL FALL W/RIGHT ANKLE FX; WELL PNA. PT IS A/O x4; NSR ON MONITOR. NO RESP DIST NOTED ON O2 5L VIA NC. PT DENIES PAIN AT THIS TIME. PT MORE CONCERNED WITH CONSTIPATION. EXPRESSED CONCERNED ABOUT TAKING MORE MEDICATIONS THAT WILL CONTINUE TO CONSTIPATE HER. EDUCATED PT ON PAIN MGMT. PT VERBALIZED UNDERSTANDING. DEMPSEY CATHETER DRAINING ADEQUATE AMOUNT OF YELLOW URINE. PLAN FOR SURGERY IN MORNING. ORDER TO HOLD LOVENOX AND KEEP NPO AFTER 2200. DISCUSSED PLAN WITH PT WHO VERBALIZED UNDERSTANDING. HOB ELEVATED. BED LOCKED AND IN LOW POSITION.
--- NOTE | 2016-10-15 20:03 | NUR ---
RT PATIENT AWAKE, ALERT, ZERO SOB. REFUSED HHN TX. B/S DIM CLEAR. PATIENT SAID SHE HAS HAD ENOUGH TXS FOR THE DAY.
[2016-10-15] MEDS: ENOXAPARIN SODIUM 40 MG/0.4 ML DISP.SYRIN SQ SCH (20:34)
--- NOTE | 2016-10-15 20:34 | NUR ---
AIRPLANE COVERER NON ADMIT LOVENOX PT IS SCHEDULED FOR SURGERY TOMORROW.
[2016-10-15] MEDS: ATORVASTATIN 10 MG TABLET PO SCH (21:03)
[2016-10-15] MEDS: TRAZODONE 50 MG TABLET PO SCH (21:03)
--- NOTE | 2016-10-15 23:45 | NUR ---
ELECTROPLATING TECHNICIAN PT C/O RIGHT ANKLE PAIN 02/15; DILAUDID 1 MG IV GIVEN. REPOSITIONED. CONTINUE TO MONITOR.
[2016-10-16] VITALS (29 sets, daily range): BP systolic 104–154; BP diastolic 47–83
--- NOTE | 2016-10-16 | NUR ---
STOPPER MAKER HELPER PT ASLEEP AT THIS TIME NOTED SATURATION TO BE IN THE MID 80s SWITCHED TO MASK AT 10 L. CONTINUE MONITORING.
[2016-10-16] MEDS: ALBUTEROL FS 2.5 MG/0.5 ML VIAL.NEB NEB SCH ×4 (01:28→20:05)
[2016-10-16] MEDS: IPRATROPIUM NEB FS 0.5 MG/2.5 ML AMPUL.NEB NEB SCH ×4 (01:28→20:05)
[2016-10-16 04:51] LABS: BASOPHILS % (AUTO) 0.4 % (0.0-2.0); EOSINOPHILS # (AUTO) 0.2 /CMM (0.0-0.7); EOSINOPHILS % (AUTO) 3.3 % (0.0-6.0); HEMATOCRIT 37 % (33-45); HEMOGLOBIN 11.8 g/dL (11.5-14.8); LYMPHOCYTES % (AUTO) 30.2 % (20.0-44.0); MEAN CORPUSCULAR HEMOGLOBIN 26 PG (26.0-33.0); MEAN CORPUSCULAR HGB CONC 32 g/dl (31.0-36.0); MEAN CORPUSCULAR VOLUME 81 fL (82-100); MONOCYTES # (AUTO) 0.5 /CMM (0.1-1.30); MONOCYTES % (AUTO) 7.2 % (2.0-12.0); NEUTROPHILS # (AUTO) 3.9 /CMM (1.8-8.9); NEUTROPHILS % (AUTO) 58.9 % (43.0-81.0); PLATELET COUNT (AUTO) 366 /CMM (150-450); RDW COEFFICIENT OF VARIATION 14.2 (11.5-15.0); WHITE BLOOD COUNT (AUTO) 6.6 K/uL (4.3-11.0)
[2016-10-16] MEDS ORDERED: SET RED CAP 1 EA INFUS.SET MC ONE (05:02)
[2016-10-16 05:11] LABS: CALCIUM, SERUM 9.5 mg/dL (8.5-10.1); CREATININE 0.6 mg/dL (0.6-1.3); MAGNESIUM 2.1 mg/dL (1.8-2.4); PHOSPHORUS 4.7 mg/dL (2.5-4.9)
[2016-10-16] MEDS ORDERED: BUPIVACAINE 0.5 % PF 150 MG/30 ML VIAL ONE (06:28)
[2016-10-16] MEDS ORDERED: BACITRACIN 50000 UNITS/VIAL ONE (06:28)
[2016-10-16] MEDS ORDERED: FENTANYL PF 100MCG/2ML AMPUL ONE ×3 (06:41→09:44)
[2016-10-16] MEDS ORDERED: ROCURONIUM BROMIDE 50 MG/5 ML ONE (06:42)
[2016-10-16] MEDS ORDERED: MIDAZOLAM HCL 2 MG/2ML VIAL ONE (06:42)
--- NOTE | 2016-10-16 06:48 | NUR ---
DIGITAL CONTENT SPECIALIST PT PICKED UP FOR SURGERY. VSS.
[2016-10-16] MEDS ORDERED: CLINDAMYCIN 900 MG/6 ML VIAL ONE (06:58)
--- NOTE | 2016-10-16 07:30 | NUR ---
ICU/RN: RECEIVED REPORT. PT IS IN SURGERY, WILL CONTINUE CARE POST OP.
[2016-10-16] MEDS: DOCUSATE SODIUM 250 MG CAPSULE PO SCH ×2 (09:00→17:18)
[2016-10-16] MEDS ORDERED: BUPIVACAINE MPF 0.5% W/EPI INJ 30 ML VIAL ONE (09:50)
--- NOTE | 2016-10-16 10:30 | NUR ---
ICU/RN: RECEIVED PT FROM OR. PT ALERT, AWAKE, FOLLOWS COMMANDS. PT ON NASAL CANULA, NO ACUTE DISTRESS NOTED, HOWEVER PT SATURATING 89-90, TITRATING 02 BETWEEN 6-8LITERS FOR MAINTAIN 02 SAT. PT ON TELE, SINUS. POST OP ORDERS RECEIVED. WILL RESUME PROP ORDERS. FAMILY AT BEDSIDE. RIGHT ANKLE/FOOT ASSESSED, ABLE TO MOVE TOES, DRESSING APPLIED. ALL NEEDS WILL BE MET, SAFETY MEASURES TAKEN, BED IN LOW POSITION, SIDE RAILS UP, CALL LIGHT WITHIN REACH. WILL CONTINUE CARE
[2016-10-16] MEDS: HYDROMORPHONE 1 MG/1 ML DISP.SYRIN IV PRN ×4 (11:08→20:55)
[2016-10-16] MEDS: SERTRALINE HCL 50 MG TABLET PO SCH (11:11)
[2016-10-16] MEDS: HYDROCODONE/APAP 5/325MG 1 EACH TABLET PO PRN ×2 (11:11→17:18)
[2016-10-16] MEDS: AMLODIPINE BESYLATE 10 MG TABLET PO SCH (11:11)
[2016-10-16] MEDS: PANTOPRAZOLE 40 MG TABLET.DR PO SCH (11:12)
[2016-10-16] MEDS: GUAIFENESIN LA 600 MG TABLET.SA PO SCH ×2 (11:12→21:15)
[2016-10-16] MEDS: IV D5/ 0.9% NACL 1,000 ML IV PRN (11:17)
[2016-10-16] MEDS ORDERED: SECONDARY IV SET 1 EA INFUS.SET MC ONE ×2 (12:14→18:48)
[2016-10-16] MEDS: CEFTRIAXONE 1 G in IV D5W 50 ML IV SCH (12:21)
[2016-10-16] MEDS ORDERED: ANESTHESIA TRAY IN PYXIS 1 EA TRAY MC ONE (14:16)
[2016-10-16] MEDS: CLINDAMYCIN 900 MG in IV D5W 50 ML IV SCH (18:53)
--- NOTE | 2016-10-16 19:19 | NUR ---
ICU/RN ENDING NOTES,AM REPORT ENDORSED TO NIGHT NURSE FOR CONTINUATION OF CARE. ALL NEEDS MET. PT ON NASAL CANULA, NO DISTRESS NOTED. PAIN MANAGEMENT AROUND THE CLOCK. PT POST OP. SINUS ON TELE. PT TURNED AND REPOSITIONED, BATHED. ALL NEEDS MET, QUESTIONS ANSWERED. ENDORSED REPORT FOR CONTINUATION OF CARE
[2016-10-16] MEDS: TRAZODONE 50 MG TABLET PO SCH (21:15)
[2016-10-16] MEDS: ATORVASTATIN 10 MG TABLET PO SCH (21:15)
[2016-10-16] MEDS: HYDROCODONE/APAP 10/325MG 1 EA TABLET PO PRN (21:33)
[2016-10-17] VITALS (24 sets, daily range): BP systolic 106–138; BP diastolic 55–83
[2016-10-17] MEDS: HYDROMORPHONE 1 MG/1 ML DISP.SYRIN IV PRN ×2 (00:10→03:44)
[2016-10-17] MEDS: IPRATROPIUM NEB FS 0.5 MG/2.5 ML AMPUL.NEB NEB SCH ×4 (00:14→20:19)
[2016-10-17] MEDS: ALBUTEROL FS 2.5 MG/0.5 ML VIAL.NEB NEB SCH ×4 (00:14→20:19)
[2016-10-17] MEDS: HYDROCODONE/APAP 10/325MG 1 EA TABLET PO PRN ×5 (01:52→21:44)
[2016-10-17] MEDS: IV D5/ 0.9% NACL 1,000 ML IV PRN ×2 (01:52→21:35)
[2016-10-17] MEDS ORDERED: HYDROMORPHONE INJ 2 MG/ML DISP.SYRIN ONE (03:32)
--- NOTE | 2016-10-17 03:45 | NUR ---
BUSINESS ADMINISTRATION PROFESSOR FOUND PT CRYING WITH INCREASED RESP RATE; PT STATES HER PAIN IS THE WORST ITS BEEN. PT HAS BEEN UNABLE TO SLEEP TONIGHT. STATES PAIN IS MORE THAN 10/10. PT MEDICATED WITH DILAUDID 1 MG IV AT THIS TIME. CONTINUE TO MONITOR.
--- NOTE | 2016-10-17 04:15 | NUR ---
DIRECTOR OF REGIONAL SALES PT CONTINUES TO APPEAR IN DISTRESS; SATURATION MID 80s; PAIN UNRESOLVED AT THIS TIME. ENCOURAGING PT TO DEEP BREATHE AND DO IS; INEFFECTIVE AT THIS TIME; PT CONTINUES CRYING D/T PAIN; PT ALSO EXPRESSING MULTIPLE CONCERNS ABOUT WHEN PT IS SENT HOME. PT SWITCHED TO NON REBREATHER MASK AT 15 L. HOB ELEVATED. CONTINUE TO MONITOR.
--- NOTE | 2016-10-17 05:18 | NUR ---
METHODS STUDY ANALYST PT PRESSED CALL LIGHT WHEN NURSE WENT IN ROOM; PT ASKED IF SHE HAD CALLED. PT STATED SHE CANT DEAL WITH MASK IT EITHER PULLS UP OR PULLS DOWN. EXPLAINED TO PT SATURATION IS VERY GOOD AT THIS TIME AND TO MAINTAIN NRB MASK ON MUCH POSSIBLE. PT ALSO STATES SHE IS UNABLE TO TURN ON TELEVISION ASKING IF IT IS BECAUSE BOARD IS BLOCKING TV; NOTHING BLOCKING TV AT THIS TIME. PT APPEARS MILDLY DISTRESSED AT THIS TIME; ALSO CONCERNED ABOUT PT BEHAVIOR. ALSO STATES PT REPEATEDLY ASKING ABOUT DISCHARGE SITUATION. A/O x3; CONTINUE TO MONITOR. REMAINS AT BEDSIDE.
[2016-10-17] MEDS: CLINDAMYCIN 900 MG in IV D5W 50 ML IV SCH ×2 (06:12→18:13)
--- NOTE | 2016-10-17 08:00 | NUR ---
ICU/RN INITIAL NOTES,AM RECEIVED REPORT FROM NIGHT NURSE. PT ALERT, AWAKE, ORIENTED TO PERSON, PLACE AND TIME. PT SWITCHED FROM NON REBREATHER TO NASAL CANULA, 6LITERS, TOLERATING WELL AND MAINTAINING O2 SAT >90%. PT ON TELE, SINUS RHYTHM. DEMPSEY IN PLACE, DRAINING YELLOW URINE. PT EXPERIENCING INTOLERABLE PAIN DESPITE PAIN MEDICATIONS POST OPERATIVELY. CONSULT FOR (PAIN MD) PLACED. ALSO PENDING MEETINGS WITH CASE MANAGEMENT AND PHYSICAL THERAPY. WILL FOLLOW UP WITH CONSULTS.
[2016-10-17] MEDS: DOCUSATE SODIUM 250 MG CAPSULE PO SCH ×2 (08:04→17:24)
[2016-10-17] MEDS: PANTOPRAZOLE 40 MG TABLET.DR PO SCH (08:04)
[2016-10-17] MEDS: GUAIFENESIN LA 600 MG TABLET.SA PO SCH ×2 (08:04→20:25)
[2016-10-17] MEDS: AMLODIPINE BESYLATE 10 MG TABLET PO SCH (08:04)
--- NOTE | 2016-10-17 08:30 | NUR ---
ICU/RN: PT CONSULTED BY KARLI WYNN, NEW ORDERS RECEIVED FOR FERMENTER PUMP TO CONTROL PAIN. WILL FOLLOW THROUGH AND CONTINUE TO CLOSELY MONITOR PAIN.
[2016-10-17] MEDS ORDERED: SET PCA INFUSE SET 1 EA INFUS.SET MC ONE (08:40)
[2016-10-17] MEDS: SERTRALINE HCL 50 MG TABLET PO SCH (08:44)
[2016-10-17] MEDS: HYDROMORPHONE MDV 30 MG in IV NS 0.9% 15 ML, PCA TOTAL VOLUME 1 BAG IV PRN ×3 (09:10)
[2016-10-17] MEDS: CELECOXIB 100 MG CAPSULE PO SCH ×2 (10:24→20:26)
[2016-10-17] MEDS: CEFTRIAXONE 1 G in IV D5W 50 ML IV SCH (12:26)
--- NOTE | 2016-10-17 16:00 | NUR ---
ICU/RN: PILOT PLANT OPERATOR MATT MET WITH VICKEY, OPTIONS DISCUSSED. FAMILY DECIDING BETWEEN REHAB AND DISCHARGE TO HOME. PHYSICAL THERAPY ALSO CONSULTED PT, NEEDED EQUIPMENT NOTED, WILL PREPARE PRIOR TO DISCHARGE. WILL CONTINUE WITH ACTIVE PHYSICAL THERAPY TOMORROW UNTIL DISCHARGE.
[2016-10-17] MEDS: LACTOBACILLUS RHAMNOSUS GG 1 EACH CAP.SPRINK PO SCH (17:24)
--- NOTE | 2016-10-17 18:54 | NUR ---
ICU/RN ENDING NOTES,AM REPORT WILL BE ENDORSED TO NIGHT NURSE FOR CONTINUATION OF CARE. ALL NEEDS MET. VSS, PT ON NASAL CANULA,NO DISTRESS NOTED AT THIS TIME. PT MAINTAINING 02 SAT >90%. PT SINUS ON TELE. LINE ERECTOR APPRENTICE PUMP IN PLACE FOR PAIN MANAGEMENT, PT EDUCATED AND REINFORCED HOW TO USE MANY TIMES. ALL NEEDS MET. WILL CONTINUE CARE. SAFETY MEASURES TAKEN, BED IN LOW POSITION, BILINGUAL SOCIAL WORKER RAILS UP, CALL LIGHT WITHIN REACH
[2016-10-17] MEDS: ENOXAPARIN SODIUM 40 MG/0.4 ML DISP.SYRIN SQ SCH (20:26)
[2016-10-17] MEDS: ATORVASTATIN 10 MG TABLET PO SCH (21:36)
[2016-10-17] MEDS: TRAZODONE 50 MG TABLET PO SCH (21:37)
[2016-10-18] VITALS (20 sets, daily range): BP systolic 99–163; BP diastolic 33–145
[2016-10-18] MEDS: IPRATROPIUM NEB FS 0.5 MG/2.5 ML AMPUL.NEB NEB SCH ×4 (01:30→20:15)
[2016-10-18] MEDS: ALBUTEROL FS 2.5 MG/0.5 ML VIAL.NEB NEB SCH ×4 (01:30→20:16)
[2016-10-18] MEDS: HYDROCODONE/APAP 10/325MG 1 EA TABLET PO PRN ×5 (04:15→22:20)
[2016-10-18] MEDS: CLINDAMYCIN 900 MG in IV D5W 50 ML IV SCH (06:09)
[2016-10-18] MEDS ORDERED: SET PCA INFUSE SET 1 EA INFUS.SET MC ONE (07:33)
[2016-10-18] MEDS: PANTOPRAZOLE 40 MG TABLET.DR PO SCH (07:43)
--- NOTE | 2016-10-18 07:45 | NUR ---
ICU/RN - Initial Notes Received pt in bed awake, aox3. Respirations are even and unlabored, on O2 @ 6lpm via nasal cannula with O2 saturation 93%. States that right ankle pain is at 8 out of 10, re-education provided regarding pain management - SOUP MIXER pump, PRN [place] for breakthrough pain, pt verbalizes understanding. On tele reading SR 88. Turner catheter intact draining urine to gravity. Right lower extremity dressing intact, with splint noted, kept elevated. On SOUP MIXER Dilaudid, demand bolus dose only. IVF infusing well. Safety and comfort measures in place. Pt cleared for Medsurg status per Dr Harris, pt anxious about being transferred. Encourage pt to express feelings. Will continue to monitor pt closely. Addendum: 10/18/16 at 1048 by CARLOS MARSHALL RN PRN [place] 1 tab given as pt complains of right ankle pain 02/15. Will reassess pain accordingly.
[2016-10-18] MEDS: CELECOXIB 100 MG CAPSULE PO SCH ×2 (08:17→21:24)
[2016-10-18] MEDS: SERTRALINE HCL 50 MG TABLET PO SCH (08:17)
[2016-10-18] MEDS: GUAIFENESIN LA 600 MG TABLET.SA PO SCH ×2 (08:17→21:24)
[2016-10-18] MEDS: AMLODIPINE BESYLATE 10 MG TABLET PO SCH (08:17)
[2016-10-18] MEDS: DOCUSATE SODIUM 250 MG CAPSULE PO SCH ×2 (08:17→17:05)
[2016-10-18] MEDS: LACTOBACILLUS RHAMNOSUS GG 1 EACH CAP.SPRINK PO SCH ×2 (08:17→17:05)
[2016-10-18] MEDS: HYDROMORPHONE MDV 30 MG in IV NS 0.9% 15 ML, PCA TOTAL VOLUME 1 BAG IV PRN ×3 (08:21)
[2016-10-18] MEDS: CEFTRIAXONE 1 G in IV D5W 50 ML IV SCH (11:22)
--- NOTE | 2016-10-18 11:56 | NUR ---
ICU/RN - Notes Pt complains of right ankle pain on pain scale 8/10, requests for [place]. Administered [place] 10 1 tab as ordered for PRN pain. Will reassess pain accordingly.
--- NOTE | 2016-10-18 15:38 | NUR ---
ICU/RN - Transfer Pt transferred to [place] [id number] in stable condition. All belongings taken with pt. Family notified regarding transfer. Report given to Tatiana, charge nurse, for continuity of care.
--- NOTE | 2016-10-18 15:56 | NUR ---
pt. transferred from medical surgical floor.no c/o pain ,no sob,no s/s of distress on 6 LPM via N/C I.V site CDI and patent.on MUSHROOM PICKER pump for pain management.will continue to monitor for changes.
--- NOTE | 2016-10-18 19:30 | NUR ---
RN INITIAL NOTE RECEIVED PT IN NO ACUTE DISTRESS IN BED. PT IS A/O X 4 AND ABLE TO MAKE NEEDS KNOWN. PT IS ON O2 VIA NC @ 4LPM AND TOLERATING WELL WITH O2 SAT @ 93%. PT IS ON DENTIST PUMP DILAUDID 1MG/1ML FOR PAIN WITH 0.5 MG DILAUDID FOR BREAKTHROUGH PAIN. PT CURRENTLY NOT C/O ANY PAIN UNLESS RIGHT LOWER EXTREMITY MOVED IN WHICH PAIN IS SHARP 10/10. EDUCATED PT ON THE PURPOSE AND USE OF DENTIST PUMP. PT VERBALIZED UNDERSTANDING. PT HAS F/C THAT IS CLEAN DRY INTACT AND PATENT WITH CLEAR YELLOW URINE DRAINING. PT HAS MIDLINE THAT IS CLEAN DRY INTACT AND PATENT WITH DENTIST PUMP INFUSING PER MD ORDERS. BED IN LOW LOCK POSITION WITH RIALS UP X 2 CALL LIGHT WITHIN REACH AND ALL SAFETY MEASURES ENSURED AND CARRIED OUT. WILL CONTINUE TO MONITOR PT.
[2016-10-18] MEDS: TRAZODONE 50 MG TABLET PO SCH (21:24)
[2016-10-18] MEDS: ATORVASTATIN 10 MG TABLET PO SCH (21:24)
[2016-10-18] MEDS: ENOXAPARIN SODIUM 40 MG/0.4 ML DISP.SYRIN SQ SCH (21:25)
[2016-10-19] MEDS: IPRATROPIUM NEB FS 0.5 MG/2.5 ML AMPUL.NEB NEB SCH ×4 (01:23→19:36)
[2016-10-19] MEDS: ALBUTEROL FS 2.5 MG/0.5 ML VIAL.NEB NEB SCH ×4 (01:23→19:36)
[2016-10-19 04:00] VITALS: BP 120/67
[2016-10-19] MEDS: HYDROCODONE/APAP 10/325MG 1 EA TABLET PO PRN ×4 (05:53→18:54)
--- NOTE | 2016-10-19 06:14 | NUR ---
RN NOTE UNABLE TO WEIGHT PT DUE TO BED NOT ZEROED OUT. WILL PUT WEIGHT ACCORDING TO PT. WILL ENDORSE TO AM RN TO ZERO BED WHEN PT WORKS WITH PHYSICAL THERAPY.
--- NOTE | 2016-10-19 06:50 | NUR ---
RN CLOSING NOTE PT REMAINS IN NO ACUTE DISTRESS IN BED. PT DID NOT HAVE ANY SIGNIFICANT CHANGE IN CONDITION DURING SHIFT. PT NEEDS FURTHER EDUCATION ON PAIN MANAGEMENT. RECEIVED VERBAL ORDERS FROM DR CALVILLO TO GIVE NORCO PRIOR TO PT. WILL ENDORSE TO AM RN FOR CONTINUITY OF CARE.
[2016-10-19 08:00] VITALS: BP 116/72
[2016-10-19] MEDS: DOCUSATE SODIUM 250 MG CAPSULE PO SCH ×2 (10:40→18:54)
[2016-10-19] MEDS: PANTOPRAZOLE 40 MG TABLET.DR PO SCH (10:40)
[2016-10-19] MEDS: SERTRALINE HCL 50 MG TABLET PO SCH (10:40)
[2016-10-19] MEDS: GUAIFENESIN LA 600 MG TABLET.SA PO SCH ×2 (10:40→20:59)
[2016-10-19] MEDS: LACTOBACILLUS RHAMNOSUS GG 1 EACH CAP.SPRINK PO SCH ×2 (10:40→18:53)
[2016-10-19] MEDS: AMLODIPINE BESYLATE 10 MG TABLET PO SCH (10:41)
[2016-10-19] MEDS: CELECOXIB 100 MG CAPSULE PO SCH ×2 (10:42→20:58)
[2016-10-19 12:00] VITALS: BP 118/69
[2016-10-19] MEDS: CEFTRIAXONE 1 G in IV D5W 50 ML IV SCH (13:13)
[2016-10-19] MEDS ORDERED: SET PCA INFUSE SET 1 EA INFUS.SET MC ONE (13:22)
[2016-10-19] MEDS ORDERED: IV SET PRIMARY PUMP SET 1 EA INFUS.SET MC ONE (13:23)
[2016-10-19] MEDS: HYDROMORPHONE MDV 30 MG in IV NS 0.9% 15 ML, PCA TOTAL VOLUME 1 BAG IV PRN ×3 (13:40)
[2016-10-19 16:00] VITALS: BP 124/81
[2016-10-19 17:00] VITALS: BP 129/89
--- NOTE | 2016-10-19 19:30 | NUR ---
RN INITIAL NOTE RECEIVED PT IN NO ACUTE DISTRESS IN BED. PT IS A/O X 4 AND ABLE TO MAKE NEEDS KNOWN. PT IS ON O2 VIA NC @ 2LPM AND TOLERATING WELL WITH O2 SAT @ 93%. PT IS ON SAILOR PUMP DILAUDID 1MG/1ML FOR PAIN WITH 0.5 MG DILAUDID FOR BREAKTHROUGH PAIN. PT CURRENTLY NOT C/O ANY PAIN UNLESS RIGHT LOWER EXTREMITY MOVED IN WHICH PAIN IS SHARP 10/10. EDUCATED PT ON THE PURPOSE AND USE OF SAILOR PUMP. PT VERBALIZED UNDERSTANDING. PT HAS F/C THAT IS CLEAN DRY INTACT AND PATENT WITH CLEAR YELLOW URINE DRAINING. PT HAS MIDLINE THAT IS CLEAN DRY INTACT AND PATENT WITH SAILOR PUMP INFUSING PER MD ORDERS. BED IN LOW LOCK POSITION WITH RIALS UP X 2 CALL LIGHT WITHIN REACH AND ALL SAFETY MEASURES ENSURED AND CARRIED OUT. WILL CONTINUE TO MONITOR PT.
[2016-10-19 20:00] VITALS: BP 101/61
[2016-10-19] MEDS: ENOXAPARIN SODIUM 40 MG/0.4 ML DISP.SYRIN SQ SCH (20:59)
[2016-10-19] MEDS: TRAZODONE 50 MG TABLET PO SCH (21:00)
[2016-10-19] MEDS: ATORVASTATIN 10 MG TABLET PO SCH (21:00)
[2016-10-20] MEDS: IPRATROPIUM NEB FS 0.5 MG/2.5 ML AMPUL.NEB NEB SCH ×4 (01:09→19:59)
[2016-10-20] MEDS: ALBUTEROL FS 2.5 MG/0.5 ML VIAL.NEB NEB SCH ×4 (01:09→19:59)
[2016-10-20 04:00] VITALS: BP 116/65
[2016-10-20 04:42] VITALS: BP 116/65
--- NOTE | 2016-10-20 07:15 | NUR ---
RN INITIAL NOTE PT RECEIVED IN BED, RESTING COMFORTABLY. PT AWAKE, ALERT AND ORIENTED. IS ON CLINICAL BIOCHEMIST MACHINE FOR PAIN. ABLE TO MAKE NEEDS KNOWN. SATING WELL ON 2L N/C. RESPIRATIONS ARE EVEN AND UNLABORED. NO SIGNS OF RESPIRATORY DISTRESS OR SOB. DEMPSEY CATHETER PATENT AND DRAINING WITH GRAVITY. IV SITE RIGHT UPPER MIDLINE, FLUSHED, PATENT. DRESSING C/D/I. CAST ON RIGHT LEG. ELEVATED ON PILLOW. SKIN WARM AND DRY TO TOUCH. SAFETY PRECAUTIONS IMPLEMENTED, BED IN LOCKED, LOW POSITION, TWO SIDE RAILS UP. CALL LIGHT WITHIN REACH WILL CONTINUE TO MONITOR.
[2016-10-20 08:00] VITALS: BP 126/84
[2016-10-20] MEDS: LACTOBACILLUS RHAMNOSUS GG 1 EACH CAP.SPRINK PO SCH ×2 (08:26→17:05)
[2016-10-20] MEDS: SERTRALINE HCL 50 MG TABLET PO SCH (08:26)
[2016-10-20] MEDS: AMLODIPINE BESYLATE 10 MG TABLET PO SCH (08:26)
[2016-10-20] MEDS: CELECOXIB 100 MG CAPSULE PO SCH ×2 (08:26→21:11)
[2016-10-20] MEDS: PANTOPRAZOLE 40 MG TABLET.DR PO SCH (08:26)
[2016-10-20] MEDS: DOCUSATE SODIUM 250 MG CAPSULE PO SCH ×2 (08:26→17:06)
[2016-10-20] MEDS: GUAIFENESIN LA 600 MG TABLET.SA PO SCH ×2 (08:27→21:11)
[2016-10-20] MEDS: CEFTRIAXONE 1 G in IV D5W 50 ML IV SCH (13:00)
[2016-10-20 16:00] VITALS: BP 105/68
--- NOTE | 2016-10-20 18:50 | NUR ---
RN CLOSING NOTE, PT RESTING IN BED, ALL MD ORDERS CARRIED OUT. PATIENT KEPT CLEAN AND DRY. REPORT WILL BE GIVEN TO PM RN FOR DARIUS.
[2016-10-20] MEDS: HYDROMORPHONE MDV 30 MG in IV NS 0.9% 15 ML, PCA TOTAL VOLUME 1 BAG IV PRN ×3 (19:01)
--- NOTE | 2016-10-20 19:20 | NUR ---
RN INITIAL NOTE RECEIVED PT IN NO ACUTE DISTRESS IN BED. PT IS A/O X 4 AND ABLE TO MAKE NEEDS KNOWN. PT IS ON O2 VIA NC @ 2LPM AND TOLERATING WELL WITH O2 SAT @ 93%. PT IS ON DISABILITY COORDINATOR PUMP DILAUDID 1MG/1ML FOR PAIN WITH 0.5 MG DILAUDID FOR BREAKTHROUGH PAIN. PT CURRENTLY NOT C/O ANY PAIN UNLESS RIGHT LOWER EXTREMITY MOVED IN WHICH PAIN IS SHARP 10/10. EDUCATED PT ON THE PURPOSE AND USE OF DISABILITY COORDINATOR PUMP. PT VERBALIZED UNDERSTANDING. PT HAS F/C THAT IS CLEAN DRY INTACT AND PATENT WITH CLEAR YELLOW URINE DRAINING. PT HAS MIDLINE THAT IS CLEAN DRY INTACT AND PATENT WITH DISABILITY COORDINATOR PUMP INFUSING PER MD ORDERS. BED IN LOW LOCK POSITION WITH RIALS UP X 2 CALL LIGHT WITHIN REACH AND ALL SAFETY MEASURES ENSURED AND CARRIED OUT. WILL CONTINUE TO MONITOR PT.
[2016-10-20 20:00] VITALS: BP 125/75
[2016-10-20] MEDS: HYDROCODONE/APAP 10/325MG 1 EA TABLET PO PRN (21:11)
[2016-10-20] MEDS: TRAZODONE 50 MG TABLET PO SCH (21:11)
[2016-10-20] MEDS: ATORVASTATIN 10 MG TABLET PO SCH (21:11)
[2016-10-20] MEDS: ENOXAPARIN SODIUM 40 MG/0.4 ML DISP.SYRIN SQ SCH (21:12)
[2016-10-21] MEDS: ALBUTEROL FS 2.5 MG/0.5 ML VIAL.NEB NEB SCH ×4 (01:30→19:30)
[2016-10-21] MEDS: IPRATROPIUM NEB FS 0.5 MG/2.5 ML AMPUL.NEB NEB SCH ×4 (01:30→19:30)
--- NOTE | 2016-10-21 01:47 | NUR ---
RT PT REFUSED TX AT THIS TIME. NO SON NOTED.
[2016-10-21 04:00] VITALS: BP_SYST 117; BP_SYST 127; BP_DIAS 42; BP_DIAS 65
[2016-10-21] MEDS: ONDANSETRON HCL/PF 4 MG/2 ML VIAL IVP PRN (05:21)
--- NOTE | 2016-10-21 06:00 | NUR ---
RN NOTE PT RECEIVED 1.2MG DILAUDID VIA DIRECTOR FRANCHISE SALES PUMP. WILL ENDORSE TO AM RN.
[2016-10-21] MEDS: HYDROCODONE/APAP 10/325MG 1 EA TABLET PO PRN ×2 (06:43→19:56)
[2016-10-21 08:00] VITALS: BP 111/72
--- NOTE | 2016-10-21 08:00 | NUR ---
MS RN OPENING NOTES: RECEIVED PATIENT ALERT AND ORIENTED X3 ON 3L 02 VIA NC, TITRATED DOWN TO 2 LITERS. TOLERATING WELL. PATIENT NOTED ON CENTRAL STATION OPERATOR PUMP RECEIVING DILAUDID, PUMP ZEROED AND VERIFIED WITH KEYPUNCH OPERATORS SUPERVISOR RN. RLE NOTED IN SOFT CAST. PATIENT NTOED WITH HAM MIDLINE AND DEMPSEY DRAINING TO GRAVITY. EDUCATION PROVIDED REGARDING PLAN OF CARE. NEEDS MET, SAFETY MAINTAINED. CLINICAL ALARMS IN PLACE. ONGOING MONITORING.
[2016-10-21] MEDS: PANTOPRAZOLE 40 MG TABLET.DR PO SCH (08:25)
[2016-10-21] MEDS: DOCUSATE SODIUM 250 MG CAPSULE PO SCH ×2 (08:26→17:28)
[2016-10-21] MEDS: CELECOXIB 100 MG CAPSULE PO SCH ×2 (08:26→20:34)
[2016-10-21] MEDS: LACTOBACILLUS RHAMNOSUS GG 1 EACH CAP.SPRINK PO SCH ×2 (08:26→17:28)
[2016-10-21] MEDS: GUAIFENESIN LA 600 MG TABLET.SA PO SCH ×2 (08:27→20:34)
[2016-10-21] MEDS: AMLODIPINE BESYLATE 10 MG TABLET PO SCH (08:29)
[2016-10-21] MEDS: SERTRALINE HCL 50 MG TABLET PO SCH (08:30)
[2016-10-21] MEDS: CEFTRIAXONE 1 G in IV D5W 50 ML IV SCH (13:47)
[2016-10-21 16:00] VITALS: BP 106/61
--- NOTE | 2016-10-21 17:00 | NUR ---
MS RN NOTE: PT AT BEDSIDE, PATIENT ABLE TO STAND ON LEFT LEG X3 USING WALKER. SAFETY MAINTAINED. SPO2 WNL. ONGOING MONITORING.
[2016-10-21] MEDS ORDERED: SET PCA INFUSE SET 1 EA INFUS.SET MC ONE (17:19)
--- NOTE | 2016-10-21 18:00 | NUR ---
MS RN NOTE: PATTY VELAZCO AT BEDSIDE. PHOTOGRAMMETRIST PUMP DISCONTINUED, PATIENT NOTED WITH 2.2MG OF DILAUDID ADMINISTERED.. PHOTOGRAMMETRIST REMOVED FROM ROOM AND DILAUDID WASTED WITH BUSINESS ANALYST MANAGER SOON. PATIENT INFORMED THAT SHE HAS IVP DILAUDID AND NORCO FOR BREAKTHROUGH PAIN. PATIENT KEPT CLEAN AND DRY AND TURNED AND REPOSITIONED. EXTREMITIES OFFLOADED AND SAFETY MAINTAINED. WILL ENDORSE FOR CONTINUITY OF CARE. PATIENT TO HAVE TRIALS OF ROOM AIR TOMORROW PER DR. CHAVEZ.
[2016-10-21 20:00] VITALS: BP 117/67
--- NOTE | 2016-10-21 20:00 | NUR ---
RN INITIAL NOTE RECEIVED PT IN NO ACUTE DISTRESS IN BED. PT IS A/O X 4 AND ABLE TO MAKE NEEDS KNOWN. PT IS ON O2 VIA NC @ 2LPM AND TOLERATING WELL WITH O2 SAT @ 94%. PT HAS DILAUDID 0.5 MG AND NORCO 10/325 FOR BREAKTHROUGH PAIN. PT CURRENTLY NOT C/O ANY PAIN UNLESS RIGHT LOWER EXTREMITY MOVED IN WHICH PAIN IS SHARP 10/10. EDUCATED PT ON PAIN MANAGEMENT. PT VERBALIZED UNDERSTANDING. PT HAS F/C THAT IS CLEAN DRY INTACT AND PATENT WITH CLEAR YELLOW URINE DRAINING. PT HAS MIDLINE THAT IS CLEAN DRY INTACT AND PATENT WITH SALINE FLUSH. BED IN LOW LOCK POSITION WITH RIALS UP X 2 CALL LIGHT WITHIN REACH AND ALL SAFETY MEASURES ENSURED AND CARRIED OUT. WILL CONTINUE TO MONITOR PT.
[2016-10-21] MEDS: TRAZODONE 50 MG TABLET PO SCH (20:33)
[2016-10-21] MEDS: ATORVASTATIN 10 MG TABLET PO SCH (20:34)
[2016-10-21] MEDS: ENOXAPARIN SODIUM 40 MG/0.4 ML DISP.SYRIN SQ SCH (20:35)
[2016-10-22] MEDS: IPRATROPIUM NEB FS 0.5 MG/2.5 ML AMPUL.NEB NEB SCH ×4 (01:18→19:33)
[2016-10-22] MEDS: ALBUTEROL FS 2.5 MG/0.5 ML VIAL.NEB NEB SCH ×4 (01:18→19:32)
[2016-10-22] MEDS: HYDROMORPHONE 1 MG/1 ML DISP.SYRIN IV PRN ×3 (01:41→20:25)
[2016-10-22] MEDS: ONDANSETRON HCL/PF 4 MG/2 ML VIAL IVP PRN (01:48)
[2016-10-22 04:00] VITALS: BP 136/66
--- NOTE | 2016-10-22 06:41 | NUR ---
RN CLOSING NOTE PT REMAINS IN NO ACUTE DISTRESS IN BED. PT DID NOT HAVE ANY SIGNIFICANT CHANGE IN CONDITION DURING SHIFT. PT NEEDS FURTHER EDUCATION ON PAIN MANAGEMENT. WILL ENDORSE TO AM RN FOR CONTINUITY OF CARE.
[2016-10-22 08:00] VITALS: BP 124/76
--- NOTE | 2016-10-22 08:00 | NUR ---
ms rn note \patient in bed , all needs attended, will cont to monitor closely rt leg with cast able to move toes with f\c to gravity, keep rt leg elevated on pillow as tolerated rtb upper arm mid line in pace no s\s infection noted , [place] po given as ordered , level 8\10 scale bed in ,lowest and locked position ,plan of care discussed with patient,
[2016-10-22] MEDS: PANTOPRAZOLE 40 MG TABLET.DR PO SCH (08:37)
[2016-10-22] MEDS: SERTRALINE HCL 50 MG TABLET PO SCH (08:38)
[2016-10-22] MEDS: CELECOXIB 100 MG CAPSULE PO SCH ×2 (08:39→20:34)
[2016-10-22] MEDS: DOCUSATE SODIUM 250 MG CAPSULE PO SCH ×2 (08:40→18:41)
[2016-10-22] MEDS: GUAIFENESIN LA 600 MG TABLET.SA PO SCH ×2 (08:40→20:35)
[2016-10-22] MEDS: AMLODIPINE BESYLATE 10 MG TABLET PO SCH (08:41)
[2016-10-22] MEDS: LACTOBACILLUS RHAMNOSUS GG 1 EACH CAP.SPRINK PO SCH ×2 (08:41→18:41)
[2016-10-22] MEDS: HYDROCODONE/APAP 10/325MG 1 EA TABLET PO PRN ×5 (08:43→23:15)
--- NOTE | 2016-10-22 10:57 | NUR ---
ms rn note on ra sat 89-8 90% but no c\o son , will monitor closely, seen by evelyne chaney ,not in acute distress
--- NOTE | 2016-10-22 12:00 | NUR ---
MS RN NOTE ENDORSED CARE TO RN FROM [facility]
[2016-10-22] MEDS: CEFTRIAXONE 1 G in IV D5W 50 ML IV SCH (13:28)
[2016-10-22 16:00] VITALS: BP 117/72
--- NOTE | 2016-10-22 19:50 | NUR ---
RN INITIAL NOTE; PT ON THE BED WITHOUT ANY DISTRESS , BREATHING EVEN AND UNLABORED ON ROOM AIR, ON PRN BREATHING TX . FAMILY AT THE BED SITE , HAM MIDLINE INTACT AND PATENT DENIED PAIN AT THIS TIME, CONTINENT TO BOWEL/BLADDER , BED IN THE LOWEST/LOCKED POSITION, WILL KEEP COMFORTABLE, WILL CONTINUE TO MONITOR .
[2016-10-22 20:00] VITALS: BP 97/70
[2016-10-22] MEDS: ENOXAPARIN SODIUM 40 MG/0.4 ML DISP.SYRIN SQ SCH (20:35)
[2016-10-22] MEDS: TRAZODONE 50 MG TABLET PO SCH (21:00)
[2016-10-22] MEDS: ATORVASTATIN 10 MG TABLET PO SCH (21:01)
[2016-10-23] MEDS: ALBUTEROL FS 2.5 MG/0.5 ML VIAL.NEB NEB SCH ×3 (01:05→13:07)
[2016-10-23] MEDS: IPRATROPIUM NEB FS 0.5 MG/2.5 ML AMPUL.NEB NEB SCH ×3 (01:05→13:07)
[2016-10-23 04:00] VITALS: BP 130/74
--- NOTE | 2016-10-23 07:02 | NUR ---
RN EOS NOTE; PT REMAINED STABLE DURING THE SHIFT, NO ANY DISTRESS NOTED DURING THE SHIFT. IV SITE INTACT AND PATENT, PRN DILAUDID AND NORCO GIVEN FOR PAIN . F/C INTACT AND DRAINING YELLOWISH URINE , REPOSITIONED Q2H , KEPT CLEAN AND DRY , ALL NEEDS ATTENDED PROMPTLY, ILL ENDORSE TO NEXT SHIFT FOR CONTINUITY OF CARE.
--- NOTE | 2016-10-23 07:15 | NUR ---
RN MS INITIAL NOTES RECEIVED REPORT AND PT FROM PM NURSE, A&O X4 [place] SPEAKING, ON 2L NC SAT ABOVE 97%, DEMPSEY CATH DRAINING URINE VIA GRAVITY, RLE CAST ELEVATED AT ALL TIMES, RT UPP MIDLINE INTACT PATENT NO INFILTRATION NOTED, ALL NEEDS MET, ALL SAFETY MEASURES INITIATED, SIDE RAILS X2, BED LOW AND LOCKED, CALL LIGHT WITHIN REACH, WILL CONTINUE TO MONITOR.
[2016-10-23 08:00] VITALS: BP 120/80
[2016-10-23] MEDS: PANTOPRAZOLE 40 MG TABLET.DR PO SCH (08:13)
[2016-10-23] MEDS: HYDROCODONE/APAP 10/325MG 1 EA TABLET PO PRN ×2 (08:14→12:07)
[2016-10-23] MEDS: CELECOXIB 100 MG CAPSULE PO SCH (08:14)
[2016-10-23] MEDS: DOCUSATE SODIUM 250 MG CAPSULE PO SCH (08:15)
[2016-10-23] MEDS: LACTOBACILLUS RHAMNOSUS GG 1 EACH CAP.SPRINK PO SCH (08:15)
[2016-10-23] MEDS: GUAIFENESIN LA 600 MG TABLET.SA PO SCH (08:16)
[2016-10-23 08:17] VITALS: BP 120/80
[2016-10-23] MEDS: AMLODIPINE BESYLATE 10 MG TABLET PO SCH (08:17)
[2016-10-23] MEDS: SERTRALINE HCL 50 MG TABLET PO SCH (08:17)
--- NOTE | 2016-10-23 11:54 | NUR ---
RN MS NOTES GAVE REPORT TO ELICIA NUNO AT [facility], CAMILA WATER RESOURCE PROJECT MANAGER PLACED ORDERS 10/23/2016, PT STATES SHE WOULD LIKE TO HAVE DEMPSEY CATH STAY IN PLACE UNTIL PT IS DC.
[2016-10-23] MEDS: CEFTRIAXONE 1 G in IV D5W 50 ML IV SCH (12:00)
--- NOTE | 2016-10-23 13:35 | NUR ---
RN MS ENDING NOTES PT LEFT VIA AMBULANCE, VS STABLE, NO ACUTE DISTRESS NOTED, ALL DUE MEDS GIVEN, ALL NEEDS MET, BED BATH PROVIDED, MED RECON PROVIDED WITH NEW PRESCRIPTION, EXIT CARE AND TEACHING PROVIDED TO PT, DEMPSEY CATH IN PLACE WILL NOT REMOVE AT THIS TIME PER PT REQUEST AND MD ORDER, IV SITE REMOVED NO INFILTRATION NOTED, ALL DC PAPERWORK SIGNED AND COMPLETED, PT LEFT WITH RT LEG CAST IN PLACE ELEVATED AT ALL TIMES, ON 2L NC SAT ABOVE 95%, NO SOB, PT STABLE FOR DC, WILL CONTINUE CARE AT [facility].
== END 2016-10-23 13:31 | DRG 492 ==
LOC: ER 11:15 → MED 13:07 → ICU 10-11 10:21 → MEDSG1 10-18 15:33
PROVIDERS: ADMIT Internal Medicine; ATTEND Internal Medicine
PROC: 05H533Z Insertion of Infusion Device into Right Subclavian Vein, Percutaneous Approach (ICD-10-PCS; 2016-10-11)
PROC: 0QSJ04Z Reposition Right Fibula with Internal Fixation Device, Open Approach (ICD-10-PCS; 2016-10-16)
PROC: 0QSG04Z Reposition Right Tibia with Internal Fixation Device, Open Approach (ICD-10-PCS; principal; 2016-10-16 07:00)
DX: S82.251A Displaced comminuted fracture of shaft of right tibia, initial encounter for closed fracture (principal); J15.9 Unspecified bacterial pneumonia; J96.01 Acute respiratory failure with hypoxia; J96.02 Acute respiratory failure with hypercapnia; D68.59 Other primary thrombophilia; E44.0 Moderate protein-calorie malnutrition; E78.5 Hyperlipidemia, unspecified; I10 Essential (primary) hypertension; E66.9 Obesity, unspecified; S82.409A Unspecified fracture of shaft of unspecified fibula, initial encounter for closed fracture; S82.839A Other fracture of upper and lower end of unspecified fibula, initial encounter for closed fracture; W10.9XXA Fall (on) (from) unspecified stairs and steps, initial encounter; G47.33 Obstructive sleep apnea (adult) (pediatric); F32.9 Major depressive disorder, single episode, unspecified; F41.9 Anxiety disorder, unspecified; I51.7 Cardiomegaly; Z85.3 Personal history of malignant neoplasm of breast; Z98.82 Breast implant status; Z68.24 Body mass index [BMI] 24.0-24.9, adult; Y92.008 Other place in unspecified non-institutional (private) residence as the place of occurrence of the external cause; J40 Bronchitis, not specified as acute or chronic; S82.451A Displaced comminuted fracture of shaft of right fibula, initial encounter for closed fracture
CPT/HCPCS: 36415; 36600; 71010-TC; 71250-TC; 73600-TC; 80048-TC; 80061-TC; 83735-TC; 83880; 84100-TC; 84443-TC; 85025-TC; 85610-TC; 85730-TC; 86850-TC; 87081-TC; 93307-TC; 93970-TC; 94667-TC; 94668-TC; 94760-TC; 94799-TC; 97001-TC; 97003-TC; 97110-TC; 97530-TC; 99082-TC; A4216; A4606; A6402; C1713; J0696; J1100; J1170; J1650; J1885; J1940; J1956; J2250; J2270; J2405; J2704; J3010; J3490; J7030; J7042; J7050; J7060; Q9967; Z7610